=== PATIENT | male | born 1970 | race Hispanic/Latino ===

== ENCOUNTER 2017-04-19 00:58 | Inpatient (IN) | payer MEDICAID ==
[2017-04-19 00:59] VITALS: BMI 20.9
[2017-04-19] MEDS ORDERED: Lactated Ringer's 1,000 ML IV STA ×2 (01:41→03:10)
[2017-04-19 01:53] LABS: BASO # 0.1 K/uL (0.0-0.2); BASO % 0.7 % (0.0-2.0); EOS # 0.3 K/uL (0.0-0.7); EOS % 2.5 % (0.0-4.0); HEMATOCRIT 41.8 % (35.0-51.0); LYMPH # 5.7 K/uL (1.0-4.3); LYMPH % 48.1 % (20.0-40.0); MEAN CORPUSCULAR HEMOGLOBIN 28.9 pg (27.0-31.0); MEAN CORPUSCULAR HGB CONC 32.9 g/dL (33.0-37.0); MEAN PLATELET VOLUME 9.8 fl (7.2-11.7); MONO % 8.6 % (0.0-10.0); NEUT # 4.7 K/uL (1.8-7.0); NEUT % 40.1 % (50.0-75.0); NRBC % 0.1 % (0.0-0.0); RED CELL DISTRIBUTION WIDTH 13.9 % (11.5-14.5); WHITE BLOOD COUNT 11.8 K/uL (4.8-10.8)
[2017-04-19 02:00] LABS: POTASSIUM 4.4 MMOL/L (3.6-5.0)
[2017-04-19 02:02] LABS: ALB/GLOB RATIO 1.4 (1.0-2.1); AMYLASE 112 U/L (30-110); AST/SGOT 32 U/L (17-59); BILIRUBIN,TOTAL 0.4 mg/dl (0.2-1.3); BLOOD UREA NITROGEN 13 mg/dl (9-20); CARBON DIOXIDE 28 mmol/L (22-30); GFR AFRICAN-AMERICAN > 60; TOTAL PROTEIN 7.4 G/DL (6.3-8.2)
[2017-04-19 02:03] LABS: ALKALINE PHOSPHATASE 73 U/L (38-126); ALT/SGPT 35 U/L (21-72); GLUCOSE,RANDOM 106 mg/dL (75-110); LIPASE 667 U/L (23-300)
--- NOTE | 2017-04-19 02:10 | ED PDOC ---
HPI: Abdomen Time Seen by Provider: 04/19/17 01:10 Chief Complaint (Nursing): Abdominal Pain Chief Complaint (Provider): upper abd pain History Per: Patient Additional Complaint(s): pt w/ hx pancreatitis r/t alcohol abuse (sober one year) and STEMI 01/15 presents c/o epigastric pain radiating to the back worsening x 2 days w/ associated nausea. states pain feels like his previous bouts of pancreatitis. denies exertional sx. pain is worse with eating and laying back. no fever, cp , sob, vomitting, diarrhea, urinary c/o. Past Medical History Reviewed: Historical Data, Nursing Documentation, Vital Signs Vital Signs: Last Vital Signs Temp 97.6 F 04/19/17 01:11 Pulse 55 L 04/19/17 01:11 Resp 18 04/19/17 01:11 BP 145/72 04/19/17 01:11 Pulse Ox 100 04/19/17 02:11 - Medical History PMH: Pancreatitis (2013) Denies: Chronic Kidney Disease - Family History Family History: States: No Known Family Hx - Social History Current smoker - smoking cessation education provided: Yes Alcohol: Other (sober 1 year) Drugs: Denies - Home Medications Home Medications: Ambulatory Orders Medication Instructions Recorded Aspirin [Ecotrin] 81 mg PO DAILY #30 tablet. 01/27/17 Lisinopril 2.5 mg PO DAILY #30 tablet 01/27/17 Metoprolol Succinate XL [Toprol XL] 12.5 mg PO DAILY #30 tab 01/27/17 Rosuvastatin Calcium [Crestor] 20 mg PO HS #30 tab 01/27/17 Ticagrelor [Brilinta] 90 mg PO BID #60 tab 01/27/17 - Allergies Allergies/Adverse Reactions: Allergies Allergy/AdvReac Type Severity Reaction Status Date / Time No Known Allergies Allergy Verified 01/25/17 15:38 Review of Systems ROS Statement: Except As Marked, All Systems Reviewed And Found Negative Gastrointestinal: Positive for: Nausea, Abdominal Pain Physical Exam - Reviewed Nursing Documentation Reviewed: Yes Vital Signs Reviewed: Yes - Physical Exam Appears: Positive for: Non-toxic, Uncomfortable Skin: Positive for: Normal Color, Warm, DRY Neck: Positive for: Normal, Painless ROM Cardiovascular/Chest: Positive for: Regular Rate, Rhythm Respiratory: Positive for: CNT, Normal Breath Sounds Gastrointestinal/Abdominal: Positive for: Bowel Sounds, Soft, Tenderness ( tender epigastrum. neg roy, mcburney, rovsig). Negative for: Mass, Distended, Guarding, Rebound Neurologic/Psych: Positive for: Alert, Oriented - Laboratory Results Result Diagrams: 04/19/17 01:40 04/19/17 01:40 - ECG O2 Sat by Pulse Oximetry: 100 Medical Decision Making Medical Decision Making: pt w/ hx pancreatitis w/ s/sx recurrent episode. lipase 660s. VSS. will admit for observation. FP resident will eval. Disposition - Clinical Impression Clinical Impression: Acute pancreatitis - Patient ED Disposition Is Patient to be Admitted: Yes - Disposition Disposition Time: 02:23 Condition: STABLE - Pt Status Changed To: Hospital Disposition Of: Inpatient - Admit Certification Admit to Inpatient:: After my assessment, the patient will require hospitalization for at least two midnights. This is because of the severity of symptoms shown, intensity of services needed, and/or the medical risk in this patient being treated as an outpatient.
[2017-04-19 02:12] LABS: CHLORIDE 106 mmol/L (98-107); SODIUM 143 mmol/l (132-148)
[2017-04-19 02:33] LABS: RBC URINE < 1 /hpf (0-3); URINE BILIRUBIN NEGATIVE (NEGATIVE); URINE BLOOD NEGATIVE (NEGATIVE); URINE COLOR YELLOW (YELLOW); URINE GLUCOSE (UA) NEG (Normal); URINE KETONE NEGATIVE (NEGATIVE); URINE LEUKOCYTE ESTERASE NEG Leu/uL (Negative); URINE PROTEIN NEGATIVE (NEGATIVE); URINE UROBILINOGEN 0.2-1.0 mg/dL (0.2-1.0); WBC URINE < 1 /hpf (0-5)
--- NOTE | 2017-04-19 03:14 | CP.PCM.HP ---
<LeivaJohnson - Last Filed: 04/19/17 03:11> History of Present Illness - History of Present Illness History of Present Illness: 46 year old male with medical history of multiple bouts of alcoholic pancreatitis, CAD (with 2 stents placed in 12/2016) presented to ED today with complaints of epigastric pain associated with nausea x 2 days that radiated to the back. Patient states was in usual state of health prior to onset. Patient denies EtOH use in over a year. States pain feels like his previous bouts of pancreatitis. Pain is worse with eating and laying back. Denies fever, chills, cp, sob, vomitting, diarrhea, urinary complaints. Last BM today, soft non bloody or melena reported. PMD: [facility] PMHx: Pancreatitis, CAD (with 2 stents placed in 12/2016), EtOH abuse, tobacco abuse Meds: As per chart Allergies: NKDA Surgical hx: Cath with [address] at [facility] 12/2016 Social hx: Former EtOH Abuser. ED Course: Vitals stable. Afebrile Epigastric tenderness Morphine 4mg given 2L of LR given Labs notable for mild leukocytosis and Lipase 677 Present on Admission - Present on Admission Any Indicators Present on Admission: No Review of Systems - Review of Systems All systems: reviewed and no additional remarkable complaints except (mentioned in HPI) Past Patient History - Past Medical History & Family History Past Medical History?: Yes - Past Social History Alcohol: Other (sober 1 year) Drugs: Denies - CARDIAC Hx Heart Attack: Yes - PULMONARY Hx Respiratory Disorders: No - NEUROLOGICAL Hx Neurological Disorder: No - HEENT Hx HEENT Problems: No - RENAL Hx Chronic Kidney Disease: No - ENDOCRINE/METABOLIC Hx Endocrine Disorders: No - HEMATOLOGICAL/ONCOLOGICAL Hx Blood Disorders: No - INTEGUMENTARY Hx Dermatological Problems: No - MUSCULOSKELETAL/RHEUMATOLOGICAL Hx Musculoskeletal Disorders: No - GASTROINTESTINAL Hx Pancreatitis: Yes (2013) - GENITOURINARY/GYNECOLOGICAL Hx Genitourinary Disorders: No - PSYCHIATRIC Hx Psychophysiologic Disorder: No Hx Substance Use: No - SURGICAL HISTORY Hx Cardiac Catheterization: Yes - ANESTHESIA Hx Anesthesia: No Hx Anesthesia Reactions: No Meds Allergies/Adverse Reactions: Allergies Allergy/AdvReac Type Severity Reaction Status Date / Time No Known Allergies Allergy Verified 01/25/17 15:38 Physical Exam - Constitutional Appears: Well, Non-toxic, No Acute Distress - Head Exam Head Exam: ATRAUMATIC, NORMAL INSPECTION, NORMOCEPHALIC - Eye Exam Eye Exam: EOMI, Normal appearance - ENT Exam Additional comments: poor dentition - Neck Exam Neck exam: Positive for: Full Rom, Normal Inspection - Respiratory Exam Respiratory Exam: Clear to Auscultation Bilateral, NORMAL BREATHING PATTERN. absent: Decreased Breath Sounds, Rales, Rhonchi, Wheezes - Cardiovascular Exam Cardiovascular Exam: REGULAR RHYTHM, RRR, +S1, +S2 - GI/Abdominal Exam GI & Abdominal Exam: Normal Bowel Sounds, Soft. absent: Distended, Firm, Guarding, Organomegaly, Tenderness - Extremities Exam Extremities exam: Positive for: normal inspection. Negative for: calf tenderness, pedal edema - Back Exam Back exam: NORMAL INSPECTION - Neurological Exam Neurological exam: Alert, Oriented x3 - Psychiatric Exam Psychiatric exam: Normal Affect, Normal Mood - Skin Skin Exam: Dry, Intact, Normal Color, Warm Results - Vital Signs Recent Vital Signs: Last Vital Signs Temp 97.6 F 04/19/17 01:11 Pulse 55 L 04/19/17 01:11 Resp 18 04/19/17 01:11 BP 145/72 04/19/17 01:11 Pulse Ox 100 04/19/17 02:23 - Labs Result Diagrams: 04/19/17 01:40 04/19/17 01:40 Labs: Laboratory Results - last 24 hr 04/19/17 02:27 Urine Color Yellow Urine Clarity Clear Urine pH 6.0 Ur Specific [place] 1.010 Urine Protein Negative Urine Glucose (UA) Neg Urine Ketones Negative Urine Blood Negative Urine Nitrate Negative Urine Bilirubin Negative Urine Urobilinogen 0.2-1.0 Ur Leukocyte Esterase Neg Urine RBC (Auto) < 1 Urine Microscopic WBC < 1 Ur Squamous Epith Cells < 1 Assessment & Plan - Assessment and Plan (Free Text) Assessment: 46 years old male w/ PMHx of multiple bouts of pancreatitis usually 2ndary to EtOH abuse admitted due to acute pancreatitis w/ elevated lipase. Plan: (1) Acute pancreatitis - Denies EtOH use in 1 yr - Lipase 667 - LFTs/Bili wnl - LR @ 200cc/hr - Morphine for pain - Zofran for Nausea and vomiting - Pepcid q 12 - GI consult ordered - NPO diet (2) ETOH abuse - Stable, last EtOH approx 1 yr ago - No s/s or etoh withdrawal - WIll obtain alcohol level in serum (3) CAD, 2 stents placed 12/2016 - Continue Brilinta, Metoprolol, Rovustatin, and ASA as prescribed (4) DVT prophylaxis - Lovenox 40mg SC <Dee Dee Escamilla - Last Filed: 04/19/17 11:25> Results - Vital Signs Recent Vital Signs: Last Vital Signs Temp 97.5 F L 04/19/17 08:39 Pulse 59 L 04/19/17 11:02 Resp 20 04/19/17 08:39 BP 119/83 04/19/17 11:02 Pulse Ox 99 04/19/17 08:39 - Labs Result Diagrams: 04/19/17 01:40 04/19/17 01:40 Labs: Laboratory Results - last 24 hr 04/19/17 04/19/17 04/19/17 02:27 02:27 03:35 Urine Color Yellow Urine Clarity Clear Urine pH 6.0 Ur Specific [place] 1.010 Urine Protein Negative Urine Glucose (UA) Neg Urine Ketones Negative Urine Blood Negative Urine Nitrate Negative Urine Bilirubin Negative Urine Urobilinogen 0.2-1.0 Ur Leukocyte Esterase Neg Urine RBC (Auto) < 1 Urine Microscopic WBC < 1 Ur Squamous Epith Cells < 1 Urine Opiates Screen Negative Urine Methadone Screen Negative Ur Barbiturates Screen Negative Ur Phencyclidine Scrn Negative Ur Amphetamines Screen Negative U Benzodiazepines Scrn Negative U Oth Cocaine Metabols Negative U Cannabinoids Screen Negative Alcohol, Quantitative < 10 Assessment & Plan - Assessment and Plan (Free Text) Assessment: ATTENDING NOTE/ATTESTATION PATIENT ADMITTED THROUGH THE ED. CHART REVIEWED. CASE DISCUSSED WITH RESIDENT. AGREE WITH PLAN
[2017-04-19] MEDS ORDERED: Lactated Ringer's 1,000 ML IV SCH ×2 (03:15→17:21)
[2017-04-19] MEDS ORDERED: Sodium Chloride 0.9% 1,000 ML IV SCH (03:15)
--- NOTE | 2017-04-19 08:57 | RAD ---
HISTORY: Epigastric pain. COMPARISON: No prior. TECHNIQUE: Chest PA and lateral FINDINGS: LUNGS: [place] for hyperinflation PLEURA: No significant pleural effusion identified. No pneumothorax apparent. CARDIOVASCULAR: Normal. OSSEOUS STRUCTURES: No significant abnormalities. VISUALIZED UPPER ABDOMEN: Normal. OTHER FINDINGS: None. IMPRESSION: No active disease. No significant interval change compared to the prior examination(s).
[2017-04-19] MEDS ORDERED: LISINOPRIL 2.5 MG PO SCH (09:00)
[2017-04-19] MEDS: Enoxaparin 40 mg Syringe SC SCH (10:58)
[2017-04-19] MEDS: Metoprolol Succinate 25 mg XL Tab PO SCH (11:02)
--- NOTE | 2017-04-19 11:32 | CP.PCM.CON ---
<Micah Bone - Last Filed: 04/19/17 16:42> History of Present Illness - History of Present Illness History of Present Illness: PGY4 GI Fellow Consult Note Patient is a 46yo male with PMHx significant for EtOH abuse, prior episodes of alcohol induced pancreatitis, CAD s/p PCI with 2 stents previously placed who presented to the ED with complaint of abdominal pain and nausea. Wednesday afternoon patient developed epigastric pain which he attributed to typical gas pain. Discomfort continued in to Wednesday morning and by Wednesday evening his discomfort became severe and was radiating to his mid-lower back. Patient used tylenol to alleviate symptoms but did not find any relief, thus he came to the ED for further evaluation. He denies any recent EtOH use and has been sober 14 months per his account. New medications started in the past 2 months include Brilinta and ASA following PCI with 2 stents placed. Denies any chronic diarrhea , weight loss. He does not have a history of gallstones or hypertriglyceridemia. Currently, pain is improved and he is no longer nauseated. Eager to eat. PMHx: See HPI PSHx: PCI with 2 stents placed FHx: Mother - DM, HTN; Father - DM, HTN Social: 5 cigarettes/day; sober 14 months; denies illicit drug use Endo: Denies any prior endoscopic evaluation Review of Systems - Constitutional Constitutional: absent: Anorexia, Chills, Fever - EENT Eyes: absent: Change in Vision Nose/Mouth/Throat: absent: Sore Throat - Cardiovascular Cardiovascular: absent: Chest Pain, Dyspnea, Edema - Respiratory Respiratory: absent: Cough, Dyspnea, Excessive Mucous Production - Gastrointestinal Gastrointestinal: Abdominal Pain, Bloating, Heartburn, Nausea. absent: Constipation, Cramping, Diarrhea, Dyspepsia, Dysphagia, Hematemesis, Hematochezia, Loose Stools, Melena, Vomiting - Genitourinary Genitourinary: absent: Dysuria, Urinary Frequency, Urinary Urgency - Musculoskeletal Musculoskeletal: absent: Back Pain, Neck Pain - Integumentary Integumentary: absent: New Lesions, Rash - Neurological Neurological: absent: Dizziness, Numbness, Focal Weakness - Psychiatric Psychiatric: absent: Anxiety, Depression - Endocrine Endocrine: absent: Polydipsia, Polyphagia, Polyuria - Hematologic/Lymphatic Hematologic: absent: Easy Bleeding, Easy Bruising, Lymphadenopathy Past Patient History - Past Medical History & Family History Past Medical History?: Yes - Past Social History Smoking Status: Light Smoker < 10 Cigarettes Daily - CARDIAC Hx Cardiac Disorders: Yes (STEMI 01/15, high cholesterol) Hx Hypercholesterolemia: Yes - PULMONARY Hx Respiratory Disorders: No - NEUROLOGICAL Hx Neurological Disorder: No - HEENT Hx HEENT Problems: No - RENAL Hx Chronic Kidney Disease: No - ENDOCRINE/METABOLIC Hx Endocrine Disorders: No - HEMATOLOGICAL/ONCOLOGICAL Hx Blood Disorders: No Hx AIDS: No Hx Human Immunodeficiency Virus (HIV): No - INTEGUMENTARY Hx Dermatological Problems: No - MUSCULOSKELETAL/RHEUMATOLOGICAL Hx Musculoskeletal Disorders: No Hx Falls: No - GASTROINTESTINAL Hx Gastrointestinal Disorders: Yes Hx Pancreatitis: Yes (2013) - GENITOURINARY/GYNECOLOGICAL Hx Genitourinary Disorders: No - PSYCHIATRIC Hx Psychophysiologic Disorder: No Hx Substance Use: No - SURGICAL HISTORY Hx Surgeries: Yes Hx Cardiac Catheterization: Yes (x 2 STEMI Dec 2016) - ANESTHESIA Hx Anesthesia: Yes Hx Anesthesia Reactions: No Meds Allergies/Adverse Reactions: Allergies Allergy/AdvReac Type Severity Reaction Status Date / Time No Known Allergies Allergy Verified 01/25/17 15:38 - Medications Medications: Current Medications Aspirin (Ecotrin) 81 mg PO DAILY [facility] Last Admin: 04/19/17 10:57 Dose: 81 mg Atorvastatin Calcium (Lipitor) 40 mg PO HS [facility] Enoxaparin Sodium (Lovenox) 40 mg SC DAILY [facility] PRN Reason: Protocol Last Admin: 04/19/17 10:58 Dose: 40 mg Famotidine (Pepcid) 20 mg IVP Q12 [facility] Last Admin: 04/19/17 10:58 Dose: 20 mg Lactated Ringer's (Lactated Ringer's) 1,000 mls @ 200 mls/hr IV .Q5H [facility] Last Admin: 04/19/17 04:56 Dose: 200 mls/hr Lisinopril (Zestril) 2.5 mg PO DAILY [facility] Last Admin: 04/19/17 11:02 Dose: 2.5 mg Metoprolol Succinate (Toprol Xl) 25 mg PO DAILY [facility] Last Admin: 04/19/17 11:02 Dose: 25 mg Morphine Sulfate (Morphine) 2 mg IVP Q4 PRN PRN Reason: Pain, moderate (4-7) Last Admin: 04/19/17 11:19 Dose: 2 mg Morphine Sulfate (Morphine) 4 mg IVP Q6 PRN PRN Reason: Pain, severe (8-10) Ondansetron HCl (Zofran Inj) 4 mg IVP Q6 PRN PRN Reason: Nausea/Vomiting Ticagrelor (Brilinta) 90 mg PO BID [facility] Last Admin: 04/19/17 10:57 Dose: 90 mg Physical Exam - Constitutional Appears: Non-toxic, No Acute Distress - Eye Exam Eye Exam: EOMI, PERRL - ENT Exam ENT Exam: Mucous Membranes Moist - Respiratory Exam Respiratory Exam: Clear to Auscultation Bilateral. absent: Rales, Rhonchi, Wheezes - Cardiovascular Exam Cardiovascular Exam: RRR, +S1, +S2 - GI/Abdominal Exam GI & Abdominal Exam: Normal Bowel Sounds, Soft. absent: Distended, Firm, Guarding, Organomegaly, Rigid, Tenderness - Extremities Exam Extremities exam: Positive for: normal inspection. Negative for: pedal edema - Back Exam Back exam: NORMAL INSPECTION - Neurological Exam Neurological exam: Alert, Oriented x3 - Psychiatric Exam Psychiatric exam: Normal Affect, Normal Mood - Skin Skin Exam: Dry, Warm Results - Vital Signs Recent Vital Signs: Last Vital Signs Temp 97.5 F L 04/19/17 08:39 Pulse 59 L 04/19/17 11:02 Resp 20 04/19/17 08:39 BP 119/83 04/19/17 11:02 Pulse Ox 99 04/19/17 08:39 - Labs Result Diagrams: 04/19/17 01:40 04/19/17 01:40 Labs: Laboratory Results - last 24 hr 04/19/17 04/19/17 04/19/17 02:27 02:27 03:35 Urine Color Yellow Urine Clarity Clear Urine pH 6.0 Ur Specific [place] 1.010 Urine Protein Negative Urine Glucose (UA) Neg Urine Ketones Negative Urine Blood Negative Urine Nitrate Negative Urine Bilirubin Negative Urine Urobilinogen 0.2-1.0 Ur Leukocyte Esterase Neg Urine RBC (Auto) < 1 Urine Microscopic WBC < 1 Ur Squamous Epith Cells < 1 Urine Opiates Screen Negative Urine Methadone Screen Negative Ur Barbiturates Screen Negative Ur Phencyclidine Scrn Negative Ur Amphetamines Screen Negative U Benzodiazepines Scrn Negative U Oth Cocaine Metabols Negative U Cannabinoids Screen Negative Alcohol, Quantitative < 10 Assessment & Plan - Assessment and Plan (Free Text) Assessment: Patient is a 46yo male with PMHx significant for EtOH abuse, prior episodes of alcohol induced pancreatitis, CAD s/p PCI with 2 stents previously placed who presented to the ED with complaint of abdominal pain and nausea. -Suspect mild acute pancreatitis; unclear etiology at this time -H/O small pancreatic tail lesion and lymphadenopathy Plan: -Recommend MRCP to rule out pancreas divisum, re-evaluate tail lesion -Encourage tobacco cessation -Check IgG4, lipid panel -No medications to account for medication induced pancreatitis -May benefit from outpatient EUS -Advance to heart healthy diet - Date & Time Date: 04/19/17 Time: 12:50 <Axel Lei MD - Last Filed: 04/19/17 20:02> Meds - Medications Medications: Current Medications Aspirin (Ecotrin) 81 mg PO DAILY [facility] Last Admin: 04/19/17 10:57 Dose: 81 mg Atorvastatin Calcium (Lipitor) 40 mg PO HS [facility] Enoxaparin Sodium (Lovenox) 40 mg SC DAILY [facility] PRN Reason: Protocol Last Admin: 04/19/17 10:58 Dose: 40 mg Famotidine (Pepcid) 20 mg IVP Q12 [facility] Last Admin: 04/19/17 10:58 Dose: 20 mg Lactated Ringer's (Lactated Ringer's) 1,000 mls @ 100 mls/hr IV .Q10H [facility] Lisinopril (Zestril) 2.5 mg PO DAILY [facility] Last Admin: 04/19/17 11:02 Dose: 2.5 mg Metoprolol Succinate (Toprol Xl) 25 mg PO DAILY [facility] Last Admin: 04/19/17 11:02 Dose: 25 mg Morphine Sulfate (Morphine) 2 mg IVP Q4 PRN PRN Reason: Pain, moderate (4-7) Last Admin: 04/19/17 17:31 Dose: 2 mg Morphine Sulfate (Morphine) 4 mg IVP Q6 PRN PRN Reason: Pain, severe (8-10) Ondansetron HCl (Zofran Inj) 4 mg IVP Q6 PRN PRN Reason: Nausea/Vomiting Ticagrelor (Brilinta) 90 mg PO BID [facility] Last Admin: 04/19/17 16:55 Dose: 90 mg Results - Vital Signs Recent Vital Signs: Last Vital Signs Temp 98.7 F 04/19/17 16:14 Pulse 79 04/19/17 16:14 Resp 18 04/19/17 16:14 BP 128/80 04/19/17 16:14 Pulse Ox 98 04/19/17 16:14 - Labs Result Diagrams: 04/19/17 01:40 04/19/17 01:40 Labs: Laboratory Results - last 24 hr 04/19/17 04/19/17 04/19/17 02:27 02:27 03:35 Triglycerides Cholesterol LDL Cholesterol Direct HDL Cholesterol Urine Color Yellow Urine Clarity Clear Urine pH 6.0 Ur Specific [place] 1.010 Urine Protein Negative Urine Glucose (UA) Neg Urine Ketones Negative Urine Blood Negative Urine Nitrate Negative Urine Bilirubin Negative Urine Urobilinogen 0.2-1.0 Ur Leukocyte Esterase Neg Urine RBC (Auto) < 1 Urine Microscopic WBC < 1 Ur Squamous Epith Cells < 1 Urine Opiates Screen Negative Urine Methadone Screen Negative Ur Barbiturates Screen Negative Ur Phencyclidine Scrn Negative Ur Amphetamines Screen Negative U Benzodiazepines Scrn Negative U Oth Cocaine Metabols Negative U Cannabinoids Screen Negative Alcohol, Quantitative < 10 04/19/17 15:00 Triglycerides 38 Cholesterol 80 LDL Cholesterol Direct 31 HDL Cholesterol 42 Urine Color Urine Clarity Urine pH Ur Specific [place] Urine Protein Urine Glucose (UA) Urine Ketones Urine Blood Urine Nitrate Urine Bilirubin Urine Urobilinogen Ur Leukocyte Esterase Urine RBC (Auto) Urine Microscopic WBC Ur Squamous Epith Cells Urine Opiates Screen Urine Methadone Screen Ur Barbiturates Screen Ur Phencyclidine Scrn Ur Amphetamines Screen U Benzodiazepines Scrn U Oth Cocaine Metabols U Cannabinoids Screen Alcohol, Quantitative Attending/Attestation - Attestation I have personally seen and examined this patient.: Yes I have fully participated in the care of the patient.: Yes I have reviewed all pertinent clinical information: Yes Notes (Text): 04/19/17 19:48 Patient seen with GI fellow. 46 yr old male with PMHx significant for EtOH abuse , prior episodes of alcohol induced pancreatitis, CAD s/p PCI with 2 stents previously placed who presented to the ED with complaint of abdominal pain and nausea. Suspect mild acute pancreatitis; unclear etiology at this time. H/O small pancreatic tail lesion and lymphadenopathy Recommend MRCP to rule out pancreas divisum, re-evaluate tail lesion. Encourage tobacco cessation. Advance diet. Can follow as outpatient if diet tolerated
--- NOTE | 2017-04-19 15:04 | MRI ---
MRCP Indication: Prior pancreatic lesion, tail Technique: Multiplanar, multisequence MR images of the abdomen were obtained, including heavily T2 weighted MRCP images of the biliary system. Rotating maximum intensity projection images of the biliary system were generated. A total of 644 images were submitted for review. Comparison: CT abdomen and pelvis with contrast performed 03/01/16 Findings: The liver appears grossly unremarkable on this noncontrast examination. There is no intrahepatic biliary ductal dilatation. The distal most CBD at the confluence of the pancreatic duct is not adequately visualized. Visualized portions of the common bile duct appears within normal limits in caliber. The proximal pancreatic duct appears unremarkable. Mildly tortuous prominent distal pancreatic duct measuring up to approximately 4 mm. No filling defects are seen in the common bile duct or pancreatic duct. T1 hypo intense 1.6 x 1.6 cm focus within the pancreatic tail (series 801, image 42); the pancreatic duct is not visualized this region and appears mildly tortuous and dilated distally. The noncontrast adrenal glands, kidneys, spleen, and pancreas appear unremarkable. No ascites. No acute osseous abnormality is detected. Impression: Distal most CBD is not adequately visualized. No filling defects seen within the common bile duct. Visualized portions of the common bile duct appear within normal limits of caliber. No evidence to suggest pancreatic divisum. 1.6 x 1.6 cm T1 hypo intense focus involving the pancreatic tail. Pancreatic duct appears mildly tortuous and dilated distal to this lesion. Recommend dedicated cross-sectional imaging for further characterization.
[2017-04-19 15:25] LABS: CHOLESTEROL 80 mg/dL (0-199)
--- NOTE | 2017-04-19 19:11 | CARD ---
APPROVED REPORT EKG Measurement Heart [id number] CT [id number] <Conclusion> Sinus bradycardia RSR' or QR pattern in V1 suggests right ventricular conduction delay Borderline ECG
[2017-04-20 07:46] LABS: HEMATOCRIT 40.5 % (35.0-51.0); MEAN CELL VOLUME 87.5 fl (80.0-94.0); MEAN CORPUSCULAR HEMOGLOBIN 28.7 pg (27.0-31.0); MEAN CORPUSCULAR HGB CONC 32.8 g/dL (33.0-37.0); RED CELL DISTRIBUTION WIDTH 14.3 % (11.5-14.5); WHITE BLOOD COUNT 13.9 K/uL (4.8-10.8)
[2017-04-20 07:50] VITALS: BP 114/70; PULSE 64; RESP 20; TEMP 98.6; O2SAT 97
[2017-04-20] MEDS ORDERED: Iohexol 300 100 ML IJ ONE (08:03)
[2017-04-20] MEDS ORDERED: Sodium Chloride 0.9% 50 ML IV ONE (08:03)
[2017-04-20 08:10] LABS: ALB/GLOB RATIO 1.4 (1.0-2.1); ALKALINE PHOSPHATASE 74 U/L (38-126); ALT/SGPT 28 U/L (21-72); AST/SGOT 25 U/L (17-59); BILIRUBIN,TOTAL 0.6 mg/dl (0.2-1.3); BLOOD UREA NITROGEN 12 mg/dl (9-20); CALCIUM 8.6 mg/dL (8.4-10.2); CARBON DIOXIDE 26 mmol/L (22-30); CHLORIDE 104 mmol/L (98-107); GFR AFRICAN-AMERICAN > 60; GLUCOSE,RANDOM 91 mg/dL (75-110); SODIUM 141 mmol/l (132-148); TOTAL PROTEIN 6.6 G/DL (6.3-8.2)
--- NOTE | 2017-04-20 08:26 | CP.PCM.DIS ---
Provider - Provider Date of Admission: 04/19/17 02:18 Attending physician: Cecile Raymundo MD Consults: GI(Dr Lei) Time Spent in preparation of Discharge (in minutes): 30 Diagnosis - Discharge Diagnosis (1) Hx of myocardial infarction Status: Chronic Comment: Stable. Troponin x1 neg. On Brillinta (2) Abdominal pain Status: Acute Comment: Possible pancreatitis(Elevated lipase). MRCP no changes. F/U outpatient Hospital Course - Lab Results Lab Results: Most Recent Lab Values WBC 13.9 K/uL (4.8-10.8) H 04/20/17 05:50 RBC 4.63 Mil/uL (4.40-5.90) 04/20/17 05:50 Hgb 13.3 g/dL (12.0-18.0) 04/20/17 05:50 Hct 40.5 % (35.0-51.0) 04/20/17 05:50 MCV 87.5 fl (80.0-94.0) 04/20/17 05:50 MCH 28.7 pg (27.0-31.0) 04/20/17 05:50 MCHC 32.8 g/dL (33.0-37.0) L 04/20/17 05:50 RDW 14.3 % (11.5-14.5) 04/20/17 05:50 Plt Count 146 K/uL (130-400) 04/20/17 05:50 MPV 9.8 fl (7.2-11.7) 04/19/17 01:40 Neut % (Auto) 40.1 % (50.0-75.0) L 04/19/17 01:40 Lymph % (Auto) 48.1 % (20.0-40.0) H 04/19/17 01:40 [place] % (Auto) 8.6 % (0.0-10.0) 04/19/17 01:40 Eos % (Auto) 2.5 % (0.0-4.0) 04/19/17 01:40 Baso % (Auto) 0.7 % (0.0-2.0) 04/19/17 01:40 Neut # 4.7 K/uL (1.8-7.0) 04/19/17 01:40 Lymph # 5.7 K/uL (1.0-4.3) H 04/19/17 01:40 [place] # 1.0 K/uL (0.0-0.8) H 04/19/17 01:40 Eos # 0.3 K/uL (0.0-0.7) 04/19/17 01:40 Baso # 0.1 K/uL (0.0-0.2) 04/19/17 01:40 Sodium 141 mmol/l (132-148) 04/20/17 05:50 Potassium 4.0 MMOL/L (3.6-5.0) 04/20/17 05:50 Chloride 104 mmol/L (98-107) 04/20/17 05:50 Carbon Dioxide 26 mmol/L (22-30) 04/20/17 05:50 Anion Gap 15 (10-20) 04/20/17 05:50 BUN 12 mg/dl (9-20) 04/20/17 05:50 Creatinine 0.7 mg/dL (0.8-1.5) L 04/20/17 05:50 Est GFR ( Amer) > 60 04/20/17 05:50 Est GFR (Non-Af Amer) > 60 04/20/17 05:50 Random Glucose 91 mg/dL (75-110) 04/20/17 05:50 Calcium 8.6 mg/dL (8.4-10.2) 04/20/17 05:50 Total Bilirubin 0.6 mg/dl (0.2-1.3) 04/20/17 05:50 AST 25 U/L (17-59) 04/20/17 05:50 ALT 28 U/L (21-72) 04/20/17 05:50 Alkaline Phosphatase 74 U/L (38-126) 04/20/17 05:50 Lactate Dehydrogenase 365 U/L (313-618) 04/19/17 02:06 Troponin I < 0.0120 ng/mL (0.00-0.120) 04/19/17 01:40 Total Protein 6.6 G/DL (6.3-8.2) 04/20/17 05:50 Albumin 3.9 g/dL (3.5-5.0) 04/20/17 05:50 Globulin 2.7 gm/dL (2.2-3.9) 04/20/17 05:50 Albumin/Globulin Ratio 1.4 (1.0-2.1) 04/20/17 05:50 Triglycerides 38 mg/DL (0-149) 04/19/17 15:00 Cholesterol 80 mg/dL (0-199) 04/19/17 15:00 LDL Cholesterol Direct 31 mg/dL (0-129) 04/19/17 15:00 HDL Cholesterol 42 MG/DL (30-70) 04/19/17 15:00 Amylase 112 U/L (30-110) H 04/19/17 01:40 Lipase 667 U/L (23-300) H 04/19/17 01:40 Urine Color Yellow (YELLOW) 04/19/17 02:27 Urine Clarity Clear (Clear) 04/19/17 02:27 Urine pH 6.0 (5.0-8.0) 04/19/17 02:27 Ur Specific [employer] 1.010 (1.003-1.030) 04/19/17 02:27 Urine Protein Negative mg/dL (NEGATIVE) 04/19/17 02:27 Urine Glucose (UA) Neg mg/dL (Normal) 04/19/17 02:27 Urine Ketones Negative mg/dL (NEGATIVE) 04/19/17 02:27 Urine Blood Negative (NEGATIVE) 04/19/17 02:27 Urine Nitrate Negative (NEGATIVE) 04/19/17 02:27 Urine Bilirubin Negative (NEGATIVE) 04/19/17 02:27 Urine Urobilinogen 0.2-1.0 mg/dL (0.2-1.0) 04/19/17 02:27 Ur Leukocyte Esterase Neg Long/uL (Negative) 04/19/17 02:27 Urine RBC (Auto) < 1 /hpf (0-3) 04/19/17 02:27 Urine Microscopic WBC < 1 /hpf (0-5) 04/19/17 02:27 Ur Squamous Epith Cells < 1 /hpf (0-5) 04/19/17 02:27 Urine Opiates Screen Negative (NEGATIVE) 04/19/17 02:27 Urine Methadone Screen Negative (NEGATIVE) 04/19/17 02:27 Ur Barbiturates Screen Negative (NEGATIVE) 04/19/17 02:27 Ur Phencyclidine Scrn Negative (NEGATIVE) 04/19/17 02:27 Ur Amphetamines Screen Negative (NEGATIVE) 04/19/17 02:27 U Benzodiazepines Scrn Negative (NEGATIVE) 04/19/17 02:27 U Oth Cocaine Metabols Negative (NEGATIVE) 04/19/17 02:27 U Cannabinoids Screen Negative (NEGATIVE) 04/19/17 02:27 Alcohol, Quantitative < 10 mg/dl (0-10) 04/19/17 03:35 - Hospital Course Hospital Course: 46 y/o admitted for acute pancreatitis seen at bedside in not distress. Patient is tolerating PO diet but admits abd pain in epigastric, LUQ area after meals. Nausea resolved. Denies vomiting, CP, SOB, palpitations or changes in urination or stools. Afebrile. He underwent MRCP yesterday that showed a lesion in the tail of the pancreas with no apparent interval change from previous CT in 2016. He was treated with high rate IV fluids and NPO until last night that diet was advance. Today patient is cleared for discharge by GI with f/u as outpatient. Home meds Aspirin [Ecotrin] 81 mg PO DAILY Lisinopril 2.5 mg PO DAILY Rosuvastatin Calcium [Crestor] 20 mg PO HS Ticagrelor [Brilinta] 90 mg PO BID Metoprolol Succinate XL [Toprol XL] 12.5 mg PO DAILY Discharge Exam - Head Exam Head Exam: ATRAUMATIC, NORMAL INSPECTION, NORMOCEPHALIC - Eye Exam Eye Exam: PERRL - ENT Exam ENT Exam: Mucous Membranes Moist - Respiratory Exam Respiratory Exam: Clear to PA & Lateral, NORMAL BREATHING PATTERN - Cardiovascular Exam Cardiovascular Exam: REGULAR RHYTHM, +S1, +S2. absent: Gallop - GI/Abdominal Exam GI & Abdominal Exam: Normal Bowel Sounds, Unremarkable. absent: Rebound, Tenderness - Extremities Exam Extremities exam: normal capillary refill, pedal pulses present - Neurological Exam Neurological exam: Alert, Oriented x3 - Psychiatric Exam Psychiatric exam: Normal Affect, Normal Mood - Skin Skin Exam: Normal Color, Warm Discharge Plan - Follow Up Plan Condition: GOOD Disposition: HOME/ ROUTINE Instructions: Pancreatitis (DC) Additional Instructions: F/U with PMD and GI as outpatient after discharge.
[2017-04-20] MEDS: Enoxaparin 40 mg Syringe SC SCH (08:54)
[2017-04-20] MEDS: Metoprolol Succinate 25 mg XL Tab PO SCH (09:00)
--- NOTE | 2017-04-20 12:49 | CT ---
PROCEDURE: CT Abdomen and Pelvis with contrast HISTORY: better characterize pancreatic lesion COMPARISON: MRCP performed 04/19/17, CT abdomen and pelvis with IV contrast performed 03/01/16 TECHNIQUE: Contrast dose: 95 mL Omnipaque 300 Radiation dose: Total exam DLP = 1090.75 mGy-cm. This CT exam was performed using one or more of the following dose reduction techniques: Automated exposure control, adjustment of the mA and/or kV according to patient size, and/or use of iterative reconstruction technique. FINDINGS: LOWER THORAX: Mild left basilar atelectasis. Trace left pleural effusion. No visible pneumothorax. Small hiatal hernia/distal esophageal wall thickening. LIVER: Unremarkable. GALLBLADDER AND BILE DUCTS: Unremarkable. PANCREAS: Ectatic prominent pancreatic duct at the level of the tail measuring up to 4-5 mm in diameter. Mild peripancreatic inflammatory changes. Nonspecific 6 x 8 mm heterogeneous hypodensity at the pancreatic tail (series 10, image 45) of unclear significance. No peripancreatic fluid collections identified. SPLEEN: Unremarkable. ADRENALS: Unremarkable. KIDNEYS AND URETERS: The kidneys enhance symmetrically. No hydronephrosis or obstructing calculus identified. VASCULATURE: No aortic aneurysm. BOWEL: Stomach is nondistended. Lack of oral contrast limits evaluation for bowel pathology. Bowel loops appear within normal limits of caliber without evidence of obstruction. Mild to moderate constipation. APPENDIX: The presumed appendix appears within normal limits of caliber. No secondary signs of acute appendicitis. PERITONEUM: Small pelvic free fluid. No definite free air. LYMPH NODES: Sub cm prominent peripancreatic/mesenteric lymph nodes. Sub cm retroperitoneal lymph nodes. BLADDER: Unremarkable. REPRODUCTIVE: Unremarkable. BONES: Degenerative changes. OTHER FINDINGS: None. IMPRESSION: Ectatic prominent pancreatic duct at the level of the tail measuring up to 4-5 mm in diameter. Mild peripancreatic inflammatory changes. Sub cm prominent peripancreatic/ mesenteric lymph nodes. No peripancreatic fluid collections identified. Correlate clinically for acute pancreatitis including amylase and lipase. Nonspecific too small to characterize 6 x 8 mm heterogeneous mostly hypodense focus, pancreatic tail. Correlate clinically and continued close interval follow-up recommended. Mild to moderate constipation. Small pelvic free fluid. Additional findings as above.
== END 2017-04-20 13:30 | disposition home or self-care (01) | DRG 204 ==
LOC: H.ER 00:58 → H.ERHOLD 02:18 → H.MEDSURG1 04:00
PROVIDERS: ADMIT Family Medicine Geriatric Medicine; ATTEND Family Medicine Geriatric Medicine
DX: K85.90 Acute pancreatitis without necrosis or infection, unspecified (principal); F10.21 Alcohol dependence, in remission; I25.2 Old myocardial infarction; I25.10 Atherosclerotic heart disease of native coronary artery without angina pectoris; E78.00 Pure hypercholesterolemia, unspecified; Z95.5 Presence of coronary angioplasty implant and graft; F17.210 Nicotine dependence, cigarettes, uncomplicated; Z79.82 Long term (current) use of aspirin

== ENCOUNTER 2017-05-16 01:30 | Inpatient (IN) | payer MEDICAID ==
[2017-05-16 01:30] VITALS: BMI 20.9
[2017-05-16] MEDS ORDERED: Sodium Chloride 0.9% 1,000 ML IV STA ×2 (02:24→04:35)
[2017-05-16 02:39] LABS: BASO # 0.1 K/uL (0.0-0.2); BASO % 0.8 % (0.0-2.0); EOS # 0.2 K/uL (0.0-0.7); EOS % 1.9 % (0.0-4.0); HEMATOCRIT 39.8 % (35.0-51.0); LYMPH # 3.8 K/uL (1.0-4.3); LYMPH % 34.1 % (20.0-40.0); MEAN CELL VOLUME 87.8 fl (80.0-94.0); MEAN CORPUSCULAR HEMOGLOBIN 29.3 pg (27.0-31.0); MEAN CORPUSCULAR HGB CONC 33.3 g/dL (33.0-37.0); MEAN PLATELET VOLUME 9.7 fl (7.2-11.7); MONO # 0.8 K/uL (0.0-0.8); MONO % 6.8 % (0.0-10.0); NEUT # 6.4 K/uL (1.8-7.0); NEUT % 56.4 % (50.0-75.0); NRBC % 0.1 % (0.0-0.0); RED CELL DISTRIBUTION WIDTH 14.6 % (11.5-14.5); WHITE BLOOD COUNT 11.3 K/uL (4.8-10.8)
--- NOTE | 2017-05-16 02:49 | ED PDOC ---
"HPI: Abdomen Time Seen by Provider: 05/16/17 01:49 Chief Complaint (Nursing): Abdominal Pain Chief Complaint (Provider): Upper Abdominal Pain History Per: Patient History/Exam Limitations: no limitations Onset/Duration Of Symptoms: Hrs (12 hours) Outside of [place] travel?: No Current Symptoms Are (Timing): Still Present Location Of Pain/Discomfort: Epigastric, LUQ Associated Symptoms: Vomiting (x2), Other (Denies alcohol consumption). denies : Fever, Diarrhea, Chest Pain Additional Complaint(s): Sam Angulo, a 46 year old male, with a past medical history of pancreatitis presents to the ED with upper abdominal pain, x12hrs. The patient reports that the pain is constant and she feels it in her left upper quadrant and epigastric area. He reports that he has had 2 episodes of vomiting and denies associated diarrhea and fever. The patient states that his pain is synonymous with pain he has developed with pancreatitis he has had in the past. Denies alcohol consumption, chest pain. PMD: [facility] Past Medical History Reviewed: Historical Data, Nursing Documentation, Vital Signs Vital Signs: Last Vital Signs Temp 98.3 F 05/16/17 01:43 Pulse 62 05/16/17 01:43 Resp 14 05/16/17 01:43 BP 134/77 05/16/17 01:43 Pulse Ox 100 05/16/17 03:07 - Medical History PMH: CAD, Hypercholesterolemia, Pancreatitis (2013) Denies: HIV, Chronic Kidney Disease - Surgical History Surgical History: Coronary Stent (x2) - Family History Family History: States: Unknown Family Hx - Home Medications Home Medications: Ambulatory Orders Medication Instructions Recorded Aspirin [Ecotrin] 81 mg PO DAILY #30 tablet. 01/27/17 Lisinopril 2.5 mg PO DAILY #30 tablet 01/27/17 Rosuvastatin Calcium [Crestor] 20 mg PO HS #30 tab 01/27/17 Ticagrelor [Brilinta] 90 mg PO BID #60 tab 01/27/17 Metoprolol Succinate XL [Toprol XL] 25 mg PO DAILY 04/19/17 - Allergies Allergies/Adverse Reactions: Allergies Allergy/AdvReac Type Severity Reaction Status Date / Time No Known Allergies Allergy Verified 05/16/17 01:43 Review of Systems Constitutional: Positive for: Other (Denies alcohol consumption). Negative for : Fever Cardiovascular: Negative for: Chest Pain Gastrointestinal: Positive for: Abdominal Pain (upper abdominal pain). Negative for: Diarrhea Physical Exam - Reviewed Nursing Documentation Reviewed: Yes Vital Signs Reviewed: Yes - Physical Exam Appears: Positive for: Non-toxic, No Acute Distress (Comfortable.) Head Exam: Positive for: ATRAUMATIC, NORMOCEPHALIC Eye Exam: Positive for: Normal appearance, EOMI, PERRL Neck: Positive for: Normal, Painless ROM, Supple Cardiovascular/Chest: Positive for: Regular Rate, Rhythm, Chest Non Tender. Negative for: Tachycardia Respiratory: Positive for: Normal Breath Sounds. Negative for: Wheezing, Respiratory Distress Gastrointestinal/Abdominal: Positive for: Normal Exam, Bowel Sounds, Soft, Tenderness (Left upper quadrant and epigastric tenderness.) Back: Positive for: Normal Inspection Extremity: Positive for: Normal ROM. Negative for: Tenderness, Deformity, Swelling Neurologic/Psych: Positive for: Alert, Oriented, Gait - Laboratory Results Result Diagrams: 05/16/17 02:35 05/16/17 02:35 - ECG O2 Sat by Pulse Oximetry: 100 (RA) Pulse Ox Interpretation: Normal Medical Decision Making Medical Decision Makin Initial Impression: 46 year old female presenting with upper abdominal pain Differential Include: Acute Pancreatitis, Gastritis,Cholecystitis Initial Plan: * EKG * CMP * Lipase * Troponin * CBC * NS 1000ml IV 1000mls/hr * Zofran 4mg IV * Reevaluation EKG performed: * Sinus bradycardia normal * Normal QRS waves * No ST changes * Rate 56 * * * FINDINGS: Lower thorax: Small left-sided pleural effusion. Calcified pleural plaques. ABDOMEN: Liver: No acute findings. Gallbladder and bile ducts: The gallbladder is decompressed. No calcified stones. No significant intra- or extrahepatic biliary ductal dilation. Pancreas: Prominence of the pancreas, with loss of normal fatty lobulation. Peripancreatic fat stranding is also present, along with trace free fluid. Dilatation of the duct within the tail of the pancreas is noted, similar in appearance to previous examination.The pancreas enhances homogeneously, without areas suggesting necrosis. Spleen: No acute findings. Adrenals: No acute findings. Kidneys and ureters: No acute findings. No hydronephrosis or renal calculi. No discrete solid mass. PELVIS: Bladder: No acute findings. Reproductive: No acute findings. Appendix: The appendix is not definitively visualized. No pericecal inflammation is noted. SAM ANGULO | Final Radiology Report CONFIDENTIALITY STATEMENT This report is intended only for use by the referring physician, and only in accordance with law. If you received this in error, call [phone]. Page 2 of 2 ABDOMEN and PELVIS: Stomach and bowel: No obstruction. No mucosal thickening. Peritoneum: As above. Lymph nodes: Multiple enlarged lymph nodes within the retroperitoneum and the root of the mesentery, a nonspecific finding. Vasculature: Calcified atherosclerotic disease. Bones: No acute fracture. IMPRESSION: Findings consistent with acute pancreatitis, less severe then was identified on previous examination performed 04/20/2017. Prominence of the duct within the tail of the pancreas, similar in appearance to previous examination. Scribe Attestation Documented by Farida Etienne acting as a scribe for Cecille Burgos MD. Provider Attestation All medical record entries made by the Scribe were at my direction and personally dictated by me. I have reviewed the chart and agree that the record accurately reflects my personal performance of the history, physical exam, medical decision making, and the department course for this patient. I have also personally directed, reviewed, and agree with the discharge instructions and disposition. Disposition - Clinical Impression Clinical Impression: Acute pancreatitis - Patient ED Disposition Is Patient to be Admitted: Yes Discussed With : Johnson Leiva Doctor Will See Patient In The: ED Counseled Patient/Family Regarding: Studies Performed, Diagnosis - Disposition Disposition Time: 04:38 Condition: FAIR - Pt Status Changed To: Hospital Disposition Of: Inpatient - Admit Certification Admit to Inpatient:: After my assessment, the patient will require hospitalization for at least two midnights. This is because of the severity of symptoms shown, intensity of services needed, and/or the medical risk in this patient being treated as an outpatient. - POA Present On Arrival: None"
[2017-05-16 02:56] LABS: ALB/GLOB RATIO 1.4 (1.0-2.1); ALKALINE PHOSPHATASE 76 U/L (38-126); ALT/SGPT 34 U/L (21-72); AST/SGOT 25 U/L (17-59); BILIRUBIN,TOTAL 0.3 mg/dl (0.2-1.3); BLOOD UREA NITROGEN 12 mg/dl (9-20); CALCIUM 8.9 mg/dL (8.4-10.2); CARBON DIOXIDE 25 mmol/L (22-30); CHLORIDE 105 mmol/L (98-107); GFR AFRICAN-AMERICAN > 60; GLUCOSE,RANDOM 113 mg/dL (75-110); LIPASE 511 U/L (23-300); POTASSIUM 3.8 MMOL/L (3.6-5.0); SODIUM 143 mmol/l (132-148); TOTAL PROTEIN 7.6 G/DL (6.3-8.2)
[2017-05-16] MEDS ORDERED: Iohexol 300 100 ML IJ ONE (03:27)
[2017-05-16] MEDS ORDERED: Sodium Chloride 0.9% 50 ML IV ONE (03:28)
--- NOTE | 2017-05-16 04:19 | CT ---
EXAM: CT Abdomen and Pelvis With Intravenous Contrast CLINICAL HISTORY: 46 years old, male; Pain; Abdominal pain; Epigastric; Additional info: Epigastric pain TECHNIQUE: Axial computed tomography images of the abdomen and pelvis with intravenous contrast. This CT exam was performed using one or more of the following dose reduction techniques: automated exposure control, adjustment of the mA and/or kV according to patient size, and/or use of iterative reconstruction technique. Coronal and sagittal reformatted images were created and reviewed. CONTRAST: 95 mL of omnipaque 300 administered intravenously. COMPARISON: CT - PANCREATIC PROTOCOL 04/20/2017 8:32:05 AM FINDINGS: Lower thorax: Small left-sided pleural effusion. Calcified pleural plaques. ABDOMEN: Liver: No acute findings. Gallbladder and bile ducts: The gallbladder is decompressed. No calcified stones. No significant intra- or extrahepatic biliary ductal dilation. Pancreas: Prominence of the pancreas, with loss of normal fatty lobulation. Peripancreatic fat stranding is also present, along with trace free fluid. Dilatation of the duct within the tail of the pancreas is noted, similar in appearance to previous examination.The pancreas enhances homogeneously, without areas suggesting necrosis. Spleen: No acute findings. Adrenals: No acute findings. Kidneys and ureters: No acute findings. No hydronephrosis or renal calculi. No discrete solid mass. PELVIS: Bladder: No acute findings. Reproductive: No acute findings. Appendix: The appendix is not definitively visualized. No pericecal inflammation is noted. ABDOMEN and PELVIS: Stomach and bowel: No obstruction. No mucosal thickening. Peritoneum: As above. Lymph nodes: Multiple enlarged lymph nodes within the retroperitoneum and the root of the mesentery, a nonspecific finding. Vasculature: Calcified atherosclerotic disease. Bones: No acute fracture. IMPRESSION: Findings consistent with acute pancreatitis, less severe then was identified on previous examination performed 04/20/2017. Prominence of the duct within the tail of the pancreas, similar in appearance to previous examination.
--- NOTE | 2017-05-16 05:10 | CP.PCM.HP ---
History of Present Illness - History of Present Illness History of Present Illness: 46 year old male with medical history of multiple bouts of alcoholic pancreatitis, CAD (with 2 stents placed in 12/2016) presented to ED today with complaints of epigastric/LUQ pain associated with nausea and one episode of vomiting for last 12 hours. Patient states was in usual state of health prior to onset. Patient denies EtOH use in over a year. States pain feels like his previous bouts of pancreatitis. Patient was admitted recently for similar episode, MRCP/Pancreatic CT completed. Patient was also evaluated by GI. Patient was cleared for discharge though never followed up. Denies fever, chills , cp, sob, vomiting, diarrhea, urinary complaints. Last BM today, normal/hard non bloody or melena reported. PMD: [facility] PMHx: Pancreatitis, CAD (with 2 stents placed in 12/2016), EtOH abuse, tobacco abuse Meds: As per chart Allergies: NKDA Surgical hx: Cath with [address] at [facility] 12/2016 Social hx: Former EtOH Abuser. ED Course: Vitals stable. Afebrile Epigastric tenderness Morphine 4mg and Zofran 4mg given 2L of NS given Labs notable for mild leukocytosis and Lipase 511 CT Abdomen/Pelvis: IMPRESSION: Findings consistent with acute pancreatitis, less severe then was identified on previous examination performed 04/20/2017. Prominence of the duct within the tail of the pancreas, similar in appearance to previous examination. Present on Admission - Present on Admission Any Indicators Present on Admission: No Review of Systems - Review of Systems All systems: reviewed and no additional remarkable complaints except (mentioned in HPI) Past Patient History - Past Medical History & Family History Past Medical History?: Yes - Past Social History Smoking Status: Light Smoker < 10 Cigarettes Daily - CARDIAC Hx Hypercholesterolemia: Yes - PULMONARY Hx Respiratory Disorders: No - NEUROLOGICAL Hx Neurological Disorder: No - HEENT Hx HEENT Problems: No - RENAL Hx Chronic Kidney Disease: No - ENDOCRINE/METABOLIC Hx Endocrine Disorders: No - HEMATOLOGICAL/ONCOLOGICAL Hx Human Immunodeficiency Virus (HIV): No - INTEGUMENTARY Hx Dermatological Problems: No - MUSCULOSKELETAL/RHEUMATOLOGICAL Hx Musculoskeletal Disorders: No Hx Falls: No - GASTROINTESTINAL Hx Pancreatitis: Yes (2014) - GENITOURINARY/GYNECOLOGICAL Hx Genitourinary Disorders: No - PSYCHIATRIC Hx Psychophysiologic Disorder: No Hx Substance Use: No - SURGICAL HISTORY Hx Coronary Stent: Yes (x2) - ANESTHESIA Hx Anesthesia: Yes Hx Anesthesia Reactions: No Meds Allergies/Adverse Reactions: Allergies Allergy/AdvReac Type Severity Reaction Status Date / Time No Known Allergies Allergy Verified 05/16/17 01:43 Physical Exam - Constitutional Appears: Well, Non-toxic, No Acute Distress - Head Exam Head Exam: ATRAUMATIC, NORMAL INSPECTION, NORMOCEPHALIC - Eye Exam Eye Exam: EOMI, Normal appearance - ENT Exam Additional comments: poor dentition, missing teeth - Neck Exam Neck exam: Positive for: Normal Inspection - Respiratory Exam Respiratory Exam: Clear to Auscultation Bilateral, NORMAL BREATHING PATTERN - Cardiovascular Exam Cardiovascular Exam: REGULAR RHYTHM - GI/Abdominal Exam GI & Abdominal Exam: Normal Bowel Sounds, Soft, Tenderness (mild epigastrum). absent: Distended, Guarding, Rebound - Extremities Exam Extremities exam: Positive for: normal inspection - Neurological Exam Neurological exam: Alert, Normal Gait, Oriented x3 - Psychiatric Exam Psychiatric exam: Normal Affect, Normal Mood - Skin Skin Exam: Dry, Intact, Normal Color, Warm Results - Vital Signs Recent Vital Signs: Last Vital Signs Temp 99.0 F 05/16/17 04:55 Pulse 79 05/16/17 04:55 Resp 14 05/16/17 01:43 BP 139/89 05/16/17 04:55 Pulse Ox 100 05/16/17 04:55 - Labs Result Diagrams: 05/16/17 02:35 05/16/17 02:35 Assessment & Plan (1) Acute pancreatitis Status: Acute (2) Hx of myocardial infarction Status: Chronic (3) DVT prophylaxis Status: Acute - Assessment and Plan (Free Text) Assessment: 46 year old male w/ PMHx of multiple bouts of pancreatitis usually 2ndary to EtOH abuse admitted due to acute pancreatitis w/ elevated lipase and CT findings of acute pancreatitis Plan: (1) Acute pancreatitis - Reviewed previous charts/workup including MRCP, Pacreatic CT, Lipid Panel, IGG4 - Denies EtOH use in 1 yr, obtain etoh serum - Lipase 511 - LFTs/Bili wnl - LR @ 200cc/hr - Morphine for pain - Zofran for Nausea and vomiting - GI consult ordered - NPO diet - Consider Creon as supplementation for discharge (patient had well response in past to it) (2) h/o UT, 2 stents placed 12/2016 - Resume Brilinta, Metoprolol, Rovustatin, and ASA as prescribed when no longer NPO (3) DVT prophylaxis - Lovenox 40mg SC
[2017-05-16] MEDS: Enoxaparin 40 mg Syringe SC SCH (09:02)
[2017-05-16] MEDS: Lactated Ringer's 1,000 ML IV SCH ×4 (09:04→19:42)
--- NOTE | 2017-05-16 10:01 | CP.PCM.CON ---
History of Present Illness - History of Present Illness History of Present Illness: CC: Abdominal pain HPI: 46 year old male with h/o CAD s/p stents, recurrent pancreatitis, h/o etoh abuse who presents with recurrent abdominal pain. He reports epigastric/LUQ pain which started 1-2 days ago. He says the pain is severe, constant, radiating to the back and associated with nausea and vomiting. He denies etoh use in the past 13 months. He does admit to smoking. He has tried pancreatic enzymes at times with some improvement. No prior EUS. No chest pain sob, or fever. no weight loss. PMHx: Pancreatitis, CAD s/p stents, h/o EtOH abuse, tobacco abuse PSHx: s/p cath with stent x 2 Shx: Former etoh abuse, current smoker ROS a comprehensive review of systems was performed and was negative apart from HPI Past Patient History - Past Medical History & Family History Past Medical History?: Yes - Past Social History Smoking Status: Light Smoker < 10 Cigarettes Daily - CARDIAC Hx Hypercholesterolemia: Yes - PULMONARY Hx Respiratory Disorders: No - NEUROLOGICAL Hx Neurological Disorder: No - HEENT Hx HEENT Problems: No - RENAL Hx Chronic Kidney Disease: No - ENDOCRINE/METABOLIC Hx Endocrine Disorders: No - HEMATOLOGICAL/ONCOLOGICAL Hx Human Immunodeficiency Virus (HIV): No - INTEGUMENTARY Hx Dermatological Problems: No - MUSCULOSKELETAL/RHEUMATOLOGICAL Hx Musculoskeletal Disorders: No Hx Falls: No - GASTROINTESTINAL Hx Pancreatitis: Yes (2014) - GENITOURINARY/GYNECOLOGICAL Hx Genitourinary Disorders: No - PSYCHIATRIC Hx Psychophysiologic Disorder: No Hx Substance Use: No - SURGICAL HISTORY Hx Coronary Stent: Yes (x2) - ANESTHESIA Hx Anesthesia: Yes Hx Anesthesia Reactions: No Meds Allergies/Adverse Reactions: Allergies Allergy/AdvReac Type Severity Reaction Status Date / Time No Known Allergies Allergy Verified 05/16/17 01:43 - Medications Medications: Current Medications Aspirin (Ecotrin) 81 mg PO DAILY [facility] Last Admin: 05/16/17 09:04 Dose: 81 mg Atorvastatin Calcium (Lipitor) 40 mg PO HS [facility] Enoxaparin Sodium (Lovenox) 40 mg SC DAILY [facility] PRN Reason: Protocol Last Admin: 05/16/17 09:02 Dose: 40 mg Lactated Ringer's (Lactated Ringer's) 1,000 mls @ 200 mls/hr IV .Q5H [facility] Last Admin: 05/16/17 09:04 Dose: 200 mls/hr Ketorolac Tromethamine (Toradol) 30 mg IVP Q6 PRN PRN Reason: Pain, Mild (1-3) Lisinopril (Zestril) 2.5 mg PO DAILY [facility] Metoprolol Succinate (Toprol Xl) 25 mg PO DAILY [facility] Morphine Sulfate (Morphine) 2 mg IVP Q4 PRN PRN Reason: Pain, moderate (4-7) Morphine Sulfate (Morphine) 4 mg IVP Q6 PRN PRN Reason: Pain, severe (8-10) Ondansetron HCl (Zofran Inj) 4 mg IVP Q6 PRN PRN Reason: Nausea/Vomiting Ticagrelor (Brilinta) 90 mg PO BID [facility] Physical Exam - Constitutional Appears: Non-toxic, No Acute Distress, Chronically Ill - Head Exam Head Exam: ATRAUMATIC, NORMOCEPHALIC - Eye Exam Eye Exam: Normal appearance, PERRL. absent: Scleral icterus - ENT Exam ENT Exam: Mucous Membranes Moist, Normal Oropharynx - Neck Exam Neck exam: Negative for: Lymphadenopathy, Thyromegaly - Respiratory Exam Respiratory Exam: Clear to Auscultation Bilateral, NORMAL BREATHING PATTERN. absent: Wheezes, Respiratory Distress - Cardiovascular Exam Cardiovascular Exam: REGULAR RHYTHM, +S1, +S2 - GI/Abdominal Exam GI & Abdominal Exam: Soft. absent: Distended, Guarding, Tenderness - Extremities Exam Extremities exam: Positive for: normal capillary refill. Negative for: pedal edema - Neurological Exam Neurological exam: Alert, Oriented x3 - Psychiatric Exam Psychiatric exam: Normal Affect, Normal Mood - Skin Skin Exam: Dry, Normal Color, Warm Results - Vital Signs Recent Vital Signs: Last Vital Signs Temp 98.1 F 05/16/17 08:20 Pulse 55 L 05/16/17 08:20 Resp 20 05/16/17 08:20 BP 125/78 05/16/17 08:20 Pulse Ox 98 05/16/17 08:20 - Labs Result Diagrams: 05/16/17 02:35 05/16/17 02:35 Labs: Laboratory Results - last 24 hr 05/16/17 05:30 Alcohol, Quantitative < 10 Assessment & Plan - Assessment and Plan (Free Text) Assessment: 46 year old male with h/o etoh abuse, cad s/p stents x 2, and recurrent pancreatitis admitted with abdominal pain. 1. Acute pancreatitis 2. Pancreatic duct dilation Plan: -NPO -LR at 200 cc/hr -pain control as needed -anti-emetics as needed -etoh abstinence -smoking cessation advised -consider pancreatic enzyme supplementation when he starts eating -recommend outpatient EUS in 4-6 weeks - Date & Time Date: 05/16/17 Time: 10:01
[2017-05-16] MEDS: Metoprolol Succinate 25 mg XL Tab PO SCH (11:34)
--- NOTE | 2017-05-16 13:25 | CARD ---
APPROVED REPORT EKG Measurement Heart [id number] <Conclusion> Sinus bradycardia Possible Left atrial enlargement Incomplete RBBB Left ventricular hypertrophy with QRS widening Abnormal ECG
[2017-05-16] MEDS ORDERED: Pantoprazole 40 MG in Sodium Chloride 0.9% 100 ML IVPB SCH (14:00)
[2017-05-16 19:33] LABS: RBC URINE < 1 /hpf (0-3); URINE BILIRUBIN NEGATIVE (NEGATIVE); URINE BLOOD NEGATIVE (NEGATIVE); URINE COLOR STRAW (YELLOW); URINE GLUCOSE (UA) NEG (Normal); URINE KETONE NEGATIVE (NEGATIVE); URINE LEUKOCYTE ESTERASE NEG Leu/uL (Negative); URINE PROTEIN NEGATIVE (NEGATIVE); URINE UROBILINOGEN 0.2-1.0 mg/dL (0.2-1.0); WBC URINE < 1 /hpf (0-5)
[2017-05-17] MEDS: Lactated Ringer's 1,000 ML IV SCH ×3 (00:56→12:25)
[2017-05-17 06:15] LABS: BASO % 0.4 % (0.0-2.0); EOS # 0.2 K/uL (0.0-0.7); EOS % 1.4 % (0.0-4.0); HEMATOCRIT 37.6 % (35.0-51.0); LYMPH # 3.6 K/uL (1.0-4.3); LYMPH % 32.2 % (20.0-40.0); MEAN CELL VOLUME 88.2 fl (80.0-94.0); MEAN CORPUSCULAR HEMOGLOBIN 28.9 pg (27.0-31.0); MEAN CORPUSCULAR HGB CONC 32.8 g/dL (33.0-37.0); MONO # 1.1 K/uL (0.0-0.8); MONO % 9.6 % (0.0-10.0); NEUT # 6.4 K/uL (1.8-7.0); NEUT % 56.4 % (50.0-75.0); RED CELL DISTRIBUTION WIDTH 14.4 % (11.5-14.5); WHITE BLOOD COUNT 11.3 K/uL (4.8-10.8)
[2017-05-17 06:44] LABS: PARTIAL THROMBOPLASTIN TIME 32.3 Seconds (25.6-37.1)
[2017-05-17 06:51] LABS: ALB/GLOB RATIO 1.2 (1.0-2.1); ALKALINE PHOSPHATASE 72 U/L (38-126); ALT/SGPT 28 U/L (21-72); AST/SGOT 25 U/L (17-59); BILIRUBIN,TOTAL 0.6 mg/dl (0.2-1.3); BLOOD UREA NITROGEN 5 mg/dl (9-20); CALCIUM 8.5 mg/dL (8.4-10.2); CARBON DIOXIDE 28 mmol/L (22-30); CHLORIDE 106 mmol/L (98-107); GFR AFRICAN-AMERICAN > 60; GLUCOSE,RANDOM 91 mg/dL (75-110); LIPASE 306 U/L (23-300); POTASSIUM 3.8 MMOL/L (3.6-5.0); SODIUM 142 mmol/l (132-148); TOTAL PROTEIN 6.4 G/DL (6.3-8.2)
--- NOTE | 2017-05-17 07:40 | CP.PCM.PN ---
Subjective - Date & Time of Evaluation Date of Evaluation: 05/17/17 Time of Evaluation: 07:39 - Subjective Subjective: No acute events overnight. Patient tolerated liquid diet. Has hunger, has mild abdominal pain but is not tender. He is sleeping most of the day. No other complaints at this time. Advance diet to soft, low fat, low fiber. Will discuss case with GI. Objective - Vital Signs/Intake and Output Vital Signs (last 24 hours): Temp Pulse Resp BP Pulse Ox 98.4 F 61 20 134/76 97 05/17/17 07:32 05/17/17 07:32 05/17/17 07:32 05/17/17 07:32 05/17/17 07:32 - Medications Medications: Current Medications Aspirin (Ecotrin) 81 mg PO DAILY [facility] Last Admin: 05/16/17 09:04 Dose: 81 mg Atorvastatin Calcium (Lipitor) 40 mg PO HS [facility] Last Admin: 05/16/17 22:20 Dose: 40 mg Enoxaparin Sodium (Lovenox) 40 mg SC DAILY [facility] PRN Reason: Protocol Last Admin: 05/16/17 09:02 Dose: 40 mg Lactated Ringer's (Lactated Ringer's) 1,000 mls @ 200 mls/hr IV .Q5H [facility] Last Admin: 05/17/17 06:05 Dose: 200 mls/hr Ketorolac Tromethamine (Toradol) 30 mg IVP Q6 PRN PRN Reason: Pain, Mild (1-3) Lisinopril (Zestril) 2.5 mg PO DAILY [facility] Last Admin: 05/16/17 11:34 Dose: 2.5 mg Metoprolol Succinate (Toprol Xl) 25 mg PO DAILY [facility] Last Admin: 05/16/17 11:34 Dose: 25 mg Morphine Sulfate (Morphine) 2 mg IVP Q4 PRN PRN Reason: Pain, moderate (4-7) Morphine Sulfate (Morphine) 4 mg IVP Q6 PRN PRN Reason: Pain, severe (8-10) Ondansetron HCl (Zofran Inj) 4 mg IVP Q6 PRN PRN Reason: Nausea/Vomiting Pantoprazole Sodium (Protonix Inj) 40 mg IVP DAILY [facility] Last Admin: 05/16/17 16:06 Dose: 40 mg Ticagrelor (Brilinta) 90 mg PO BID [facility] Last Admin: 05/16/17 16:06 Dose: 90 mg - Labs Labs: 05/17/17 05:40 05/17/17 05:40 PT 12.7 Seconds (9.8-13.1) 05/17/17 05:40 INR 1.1 (0.9-1.2) 05/17/17 05:40 APTT 32.3 Seconds (25.6-37.1) 05/17/17 05:40 - Constitutional Appears: Non-toxic - Head Exam Head Exam: NORMAL INSPECTION - Respiratory Exam Respiratory Exam: Clear to Ausculation Bilateral, NORMAL BREATHING PATTERN - Cardiovascular Exam Cardiovascular Exam: REGULAR RHYTHM, +S1, +S2 - GI/Abdominal Exam GI & Abdominal Exam: Hypoactive Bowel Sounds. absent: Distended, Guarding, Tenderness - Extremities Exam Extremities Exam: absent: Pedal Edema, Tenderness - Neurological Exam Neurological Exam: Alert (upon awakening but sleeping all day.), CN II-XII Intact, Oriented x3 - Psychiatric Exam Psychiatric exam: Normal Affect, Normal Mood - Skin Skin Exam: Dry, Intact Assessment and Plan - Assessment and Plan (Free Text) Assessment: 46 year old male w/ PMHx of multiple bouts of pancreatitis admitted due to acute pancreatitis. Clinically improved. Diet advanced today. If tolerating soft diet, will advance to regular, low fat, low residue. Plan: (1) Acute pancreatitis - multiple episodes in past. - serum alcohol level negative. - Lipase trending down, 511--> 306 - LFTs/Bili wnl - LR @ 200cc/hr continue - Morphine for pain - Zofran for Nausea and vomiting - Seen by GI, Dr. Simms, will discusss management with GI. -diet advanced - d/c on Creon. (2) h/o ME, 2 stents placed 12/2016 - Resume Brilinta, Metoprolol, Rovustatin, and ASA as prescribed when no longer NPO (3) DVT prophylaxis - Lovenox 40mg SC
[2017-05-17] MEDS: Metoprolol Succinate 25 mg XL Tab PO SCH (08:41)
[2017-05-17] MEDS: Enoxaparin 40 mg Syringe SC SCH (08:42)
--- NOTE | 2017-05-17 16:06 | CP.PCM.PN ---
Subjective - Date & Time of Evaluation Date of Evaluation: 05/17/17 Time of Evaluation: 16:00 - Subjective Subjective: Patient seen at bedside. Denies abdominal pain, nausea, vomiting. Tolerated full diet Objective - Vital Signs/Intake and Output Vital Signs (last 24 hours): Temp Pulse Resp BP Pulse Ox 98.4 F 61 20 134/76 97 05/17/17 07:32 05/17/17 08:41 05/17/17 07:32 05/17/17 08:41 05/17/17 07:32 - Medications Medications: Current Medications Aspirin (Ecotrin) 81 mg PO DAILY [facility] Last Admin: 05/17/17 08:40 Dose: 81 mg Atorvastatin Calcium (Lipitor) 40 mg PO HS [facility] Last Admin: 05/16/17 22:20 Dose: 40 mg Enoxaparin Sodium (Lovenox) 40 mg SC DAILY [facility] PRN Reason: Protocol Last Admin: 05/17/17 08:42 Dose: 40 mg Lactated Ringer's (Lactated Ringer's) 1,000 mls @ 200 mls/hr IV .Q5H [facility] Last Admin: 05/17/17 12:25 Dose: Not Given Ketorolac Tromethamine (Toradol) 30 mg IVP Q6 PRN PRN Reason: Pain, Mild (1-3) Lisinopril (Zestril) 2.5 mg PO DAILY [facility] Last Admin: 05/17/17 08:41 Dose: 2.5 mg Metoprolol Succinate (Toprol Xl) 25 mg PO DAILY [facility] Last Admin: 05/17/17 08:41 Dose: 25 mg Morphine Sulfate (Morphine) 2 mg IVP Q4 PRN PRN Reason: Pain, moderate (4-7) Morphine Sulfate (Morphine) 4 mg IVP Q6 PRN PRN Reason: Pain, severe (8-10) Ondansetron HCl (Zofran Inj) 4 mg IVP Q6 PRN PRN Reason: Nausea/Vomiting Pantoprazole Sodium (Protonix Inj) 40 mg IVP DAILY [facility] Last Admin: 05/17/17 08:42 Dose: 40 mg Ticagrelor (Brilinta) 90 mg PO BID [facility] Last Admin: 05/17/17 08:42 Dose: 90 mg - Labs Labs: 05/17/17 05:40 05/17/17 05:40 PT 12.7 Seconds (9.8-13.1) 05/17/17 05:40 INR 1.1 (0.9-1.2) 05/17/17 05:40 APTT 32.3 Seconds (25.6-37.1) 05/17/17 05:40 - Constitutional Appears: Well - Head Exam Head Exam: ATRAUMATIC, NORMAL INSPECTION, NORMOCEPHALIC - Eye Exam Eye Exam: EOMI, Normal appearance, PERRL Pupil Exam: NORMAL ACCOMODATION, PERRL - Respiratory Exam Respiratory Exam: Clear to Ausculation Bilateral, NORMAL BREATHING PATTERN - Cardiovascular Exam Cardiovascular Exam: REGULAR RHYTHM, RRR, +S1, +S2. absent: Murmur - GI/Abdominal Exam GI & Abdominal Exam: Soft, Hyperactive Bowel Sounds, Normal Bowel Sounds. absent: Tenderness - Neurological Exam Neurological Exam: Alert, Awake, CN II-XII Intact, Normal Gait, Oriented x3 - Psychiatric Exam Psychiatric exam: Normal Affect, Normal Mood Assessment and Plan - Assessment and Plan (Free Text) Assessment: 46 year old male with h/o etoh abuse, cad s/p stents x 2, and recurrent pancreatitis admitted with abdominal pain in setting of acute pancreatitis with PD duct dilatation. Pain resolved. Tolerating regular diet Plan: - Low fat diet as needed -pain control as needed -anti-emetics as needed -etoh abstinence -smoking cessation advised -consider pancreatic enzyme supplementation when he starts eating -recommend outpatient EUS in 4-6 weeks - Can be discharged to home
--- NOTE | 2017-05-17 16:32 | CP.PCM.DIS ---
Provider - Provider Date of Admission: 05/16/17 04:36 Attending physician: Cecile Raymundo MD Time Spent in preparation of Discharge (in minutes): 30 Diagnosis - Discharge Diagnosis (1) Acute pancreatitis Status: Acute Hospital Course - Lab Results Lab Results: Most Recent Lab Values WBC 11.3 K/uL (4.8-10.8) H 05/17/17 05:40 RBC 4.27 Mil/uL (4.40-5.90) L 05/17/17 05:40 Hgb 12.3 g/dL (12.0-18.0) 05/17/17 05:40 Hct 37.6 % (35.0-51.0) 05/17/17 05:40 MCV 88.2 fl (80.0-94.0) 05/17/17 05:40 MCH 28.9 pg (27.0-31.0) 05/17/17 05:40 MCHC 32.8 g/dL (33.0-37.0) L 05/17/17 05:40 RDW 14.4 % (11.5-14.5) 05/17/17 05:40 Plt Count 140 K/uL (130-400) 05/17/17 05:40 MPV 10.0 fl (7.2-11.7) 05/17/17 05:40 Neut % (Auto) 56.4 % (50.0-75.0) 05/17/17 05:40 Lymph % (Auto) 32.2 % (20.0-40.0) 05/17/17 05:40 [place] % (Auto) 9.6 % (0.0-10.0) 05/17/17 05:40 Eos % (Auto) 1.4 % (0.0-4.0) 05/17/17 05:40 Baso % (Auto) 0.4 % (0.0-2.0) 05/17/17 05:40 Neut # 6.4 K/uL (1.8-7.0) 05/17/17 05:40 Lymph # 3.6 K/uL (1.0-4.3) 05/17/17 05:40 [place] # 1.1 K/uL (0.0-0.8) H 05/17/17 05:40 Eos # 0.2 K/uL (0.0-0.7) 05/17/17 05:40 Baso # 0.0 K/uL (0.0-0.2) 05/17/17 05:40 PT 12.7 Seconds (9.8-13.1) 05/17/17 05:40 INR 1.1 (0.9-1.2) 05/17/17 05:40 APTT 32.3 Seconds (25.6-37.1) 05/17/17 05:40 Sodium 142 mmol/l (132-148) 05/17/17 05:40 Potassium 3.8 MMOL/L (3.6-5.0) 05/17/17 05:40 Chloride 106 mmol/L (98-107) 05/17/17 05:40 Carbon Dioxide 28 mmol/L (22-30) 05/17/17 05:40 Anion Gap 12 (10-20) 05/17/17 05:40 BUN 5 mg/dl (9-20) L 05/17/17 05:40 Creatinine 0.7 mg/dL (0.8-1.5) L 05/17/17 05:40 Est GFR ( Amer) > 60 05/17/17 05:40 Est GFR (Non-Af Amer) > 60 05/17/17 05:40 Random Glucose 91 mg/dL (75-110) 05/17/17 05:40 Calcium 8.5 mg/dL (8.4-10.2) 05/17/17 05:40 Total Bilirubin 0.6 mg/dl (0.2-1.3) 05/17/17 05:40 AST 25 U/L (17-59) 05/17/17 05:40 ALT 28 U/L (21-72) 05/17/17 05:40 Alkaline Phosphatase 72 U/L (38-126) 05/17/17 05:40 Troponin I < 0.0120 ng/mL (0.00-0.120) 05/16/17 02:35 Total Protein 6.4 G/DL (6.3-8.2) 05/17/17 05:40 Albumin 3.5 g/dL (3.5-5.0) D 05/17/17 05:40 Globulin 2.9 gm/dL (2.2-3.9) 05/17/17 05:40 Albumin/Globulin Ratio 1.2 (1.0-2.1) 05/17/17 05:40 Lipase 306 U/L (23-300) H 05/17/17 05:40 Urine Color Straw (YELLOW) 05/16/17 17:00 Urine Clarity Clear (Clear) 05/16/17 17:00 Urine pH 6.0 (5.0-8.0) 05/16/17 17:00 Ur Specific [place] 1.012 (1.003-1.030) 05/16/17 17:00 Urine Protein Negative mg/dL (NEGATIVE) 05/16/17 17:00 Urine Glucose (UA) Neg mg/dL (Normal) 05/16/17 17:00 Urine Ketones Negative mg/dL (NEGATIVE) 05/16/17 17:00 Urine Blood Negative (NEGATIVE) 05/16/17 17:00 Urine Nitrate Negative (NEGATIVE) 05/16/17 17:00 Urine Bilirubin Negative (NEGATIVE) 05/16/17 17:00 Urine Urobilinogen 0.2-1.0 mg/dL (0.2-1.0) 05/16/17 17:00 Ur Leukocyte Esterase Neg Long/uL (Negative) 05/16/17 17:00 Urine RBC (Auto) < 1 /hpf (0-3) 05/16/17 17:00 Urine Microscopic WBC < 1 /hpf (0-5) 05/16/17 17:00 Ur Squamous Epith Cells < 1 /hpf (0-5) 05/16/17 17:00 Alcohol, Quantitative < 10 mg/dl (0-10) 05/16/17 05:30 - Hospital Course Hospital Course: 46 year old male with PMH of recurrent pancreatitis, etoh abuse, smoker, CAD (s/ p 2 stents) admitted for acute pancreatitis. Patient was hydrated with LR, placed NPO and his pain was controlled. He is tolerating a soft diet, low in fat and low fiber. Mild abdominal pain that is chronic. Gastroenterology evaluated the patient, recommended Creon. Patient to follow up with GI in 4-6 weeks for EUS. States he has appointment this week. Medications: Aspirin (Ecotrin) 81 mg PO DAILY [facility] Atorvastatin Calcium (Lipitor) 40 mg PO HS [facility] Lisinopril (Zestril) 2.5 mg PO DAILY [facility] Metoprolol Succinate (Toprol Xl) 25 mg PO DAILY [facility] Pantoprazole Sodium (Protonix Inj) 40 mg IVP DAILY [facility] Ticagrelor (Brilinta) 90 mg PO BID [facility] Start Creon 29451 units PO TID. Discharge Plan - Discharge Medications Prescriptions: Lipase/Protease/Amylase [Creon Dr 36,000 Units Capsule] 1 each PO TID #90 capsule.dr - Follow Up Plan Condition: FAIR Disposition: HOME/ ROUTINE Instructions: Pancreatitis (DC) Additional Instructions: Patient will follow up with Dr. Simms in 4-6 weeks for upper endoscopy. ER precautions given. Referrals: Jeet Simms MD [Medical Doctor] -
[2017-05-17 16:34] VITALS: BP 127/79; PULSE 56; RESP 18; TEMP 98.9; O2SAT 98
== END 2017-05-17 17:35 | disposition home or self-care (01) | DRG 204 ==
LOC: H.ER 01:30 → H.ERHOLD 04:36 → H.MEDSURG1 06:15
PROVIDERS: ADMIT Family Medicine Geriatric Medicine; ATTEND Family Medicine Geriatric Medicine
DX: K85.90 Acute pancreatitis without necrosis or infection, unspecified (principal); F10.10 Alcohol abuse, uncomplicated; F17.210 Nicotine dependence, cigarettes, uncomplicated; I25.10 Atherosclerotic heart disease of native coronary artery without angina pectoris; E78.00 Pure hypercholesterolemia, unspecified; Z95.5 Presence of coronary angioplasty implant and graft; I25.2 Old myocardial infarction; Y90.0 Blood alcohol level of less than 20 mg/100 ml; K86.89 Other specified diseases of pancreas

== ENCOUNTER 2017-05-19 03:53 | Emergency (ER) | payer MEDICAID ==
[2017-05-19 03:53] VITALS: BMI 20.9
[2017-05-19 04:16] VITALS: BP 129/81; PULSE 68; RESP 18; TEMP 98.4; O2SAT 99
[2017-05-19] MEDS ORDERED: Sodium Chloride 0.9% 1,000 ML IV STA (04:19)
--- NOTE | 2017-05-19 04:23 | ED PDOC ---
HPI: Abdomen Time Seen by Provider: 05/19/17 04:00 Chief Complaint (Nursing): Abdominal Pain Chief Complaint (Provider): abdominal pain History Per: Patient History/Exam Limitations: no limitations Onset/Duration Of Symptoms: Days (1) Current Symptoms Are (Timing): Still Present Location Of Pain/Discomfort: Epigastric, LUQ Quality Of Discomfort: "Pain" Associated Symptoms: Vomiting (x2) Additional History Per: Patient Additional Complaint(s): 46 y/o male history of CAD, hyperlipidemia, pancreatitis presents for eval of worsening upper abdominal pain x 1 day. Patient states he was admitted for acute pancreatitis on 05/15, was discharged 05/17 and feeling better. Patient notes after going home pain started again, with associated 2 episodes of nonbilious vomiting. Patient also admits to eating [place] earlier today. Denies fever, chest pain, shortness of breath, palpitations, changes in bowel movements, dysuria, hematuria. Patient taking Creon as prescribed since discharge. States he is in the process of being scheduled for an endoscopy with GI. Past Medical History Reviewed: Historical Data, Nursing Documentation, Vital Signs Vital Signs: Last Vital Signs Temp 98.4 F 05/19/17 04:05 Pulse 68 05/19/17 04:05 Resp 18 05/19/17 04:05 BP 129/81 05/19/17 04:05 Pulse Ox 99 05/19/17 05:23 - Medical History PMH: CAD, Hypercholesterolemia, Pancreatitis (2013) Denies: HIV, Chronic Kidney Disease - Surgical History Surgical History: Coronary Stent (x2) - Family History Family History: States: Unknown Family Hx - Social History Alcohol: None (sober x 15 months) - Home Medications Home Medications: Ambulatory Orders Medication Instructions Recorded Aspirin [Ecotrin] 81 mg PO DAILY #30 tablet. 01/27/17 Lisinopril 2.5 mg PO DAILY #30 tablet 01/27/17 Rosuvastatin Calcium [Crestor] 20 mg PO HS #30 tab 01/27/17 Ticagrelor [Brilinta] 90 mg PO BID #60 tab 01/27/17 Metoprolol Succinate XL [Toprol XL] 25 mg PO DAILY 04/19/17 Lipase/Protease/Amylase [Creon 1 each PO TID #90 capsule. 05/17/17 36,000 Units Capsule] Ondansetron ODT [Zofran ODT] 4 mg PO Q8 PRN #10 odt 05/19/17 traMADol [Ultram] 50 mg PO Q8 PRN #12 tab 05/19/17 - Allergies Allergies/Adverse Reactions: Allergies Allergy/AdvReac Type Severity Reaction Status Date / Time No Known Allergies Allergy Verified 05/16/17 01:43 Review of Systems ROS Statement: Except As Marked, All Systems Reviewed And Found Negative Gastrointestinal: Positive for: Abdominal Pain Physical Exam - Reviewed Nursing Documentation Reviewed: Yes Vital Signs Reviewed: Yes - Physical Exam Appears: Positive for: Well, Non-toxic, No Acute Distress Head Exam: Positive for: ATRAUMATIC, NORMAL INSPECTION, NORMOCEPHALIC Skin: Positive for: Normal Color Eye Exam: Positive for: Normal appearance ENT: Positive for: Normal ENT Inspection Cardiovascular/Chest: Positive for: Regular Rate, Rhythm Respiratory: Positive for: Normal Breath Sounds Gastrointestinal/Abdominal: Positive for: Bowel Sounds, Soft, Tenderness ( epigastric, LUQ) Back: Positive for: Normal Inspection Extremity: Positive for: Normal ROM Neurologic/Psych: Positive for: Alert, Oriented - Laboratory Results Result Diagrams: 05/19/17 04:57 05/19/17 04:57 Urine dip results: Negative for: Leukocyte Esterase, Blood, Nitrate, Ketones - ECG ECG: Positive for: Viewed By Me (reviewed by ED attending) ECG Rhythm: Positive for: Sinus Bradycardia O2 Sat by Pulse Oximetry: 99 - Progress ED Course And Treament: labs, ekg, IV fluids, IV morphine On re-eval, patient states he is feeling better. Case discussed with ED attending Dr. Leung; agrees with to discharge and follow up GI outpatient as previously instructed. Patient educated on findings, discharged with rx tramadol, zofran. Advised follow up with GI as scheduled. Return to ED for worsening/concerning symptoms. Disposition - Clinical Impression Clinical Impression: Abdominal pain Counseled Patient/Family Regarding: Studies Performed, Diagnosis, Need For Followup, Rx Given - Disposition Referrals: Dian Giraldo MD [Primary Care Provider] - Disposition: Routine/Home Disposition Time: 06:00 Condition: IMPROVED Prescriptions: Ondansetron ODT [Zofran ODT] 4 mg PO Q8 PRN #10 odt PRN Reason: Nausea/Vomiting traMADol [Ultram] 50 mg PO Q8 PRN #12 tab PRN Reason: Pain, Severe (8-10) Instructions: Abdominal Pain (ED)
[2017-05-19 05:09] LABS: BASO # 0.1 K/uL (0.0-0.2); BASO % 0.7 % (0.0-2.0); EOS # 0.2 K/uL (0.0-0.7); EOS % 2.1 % (0.0-4.0); HEMATOCRIT 41.1 % (35.0-51.0); LYMPH # 3.4 K/uL (1.0-4.3); LYMPH % 31.7 % (20.0-40.0); MEAN CORPUSCULAR HEMOGLOBIN 29.2 pg (27.0-31.0); MEAN CORPUSCULAR HGB CONC 33.2 g/dL (33.0-37.0); MEAN PLATELET VOLUME 9.7 fl (7.2-11.7); MONO % 8.9 % (0.0-10.0); NEUT # 6.1 K/uL (1.8-7.0); NEUT % 56.6 % (50.0-75.0); RED CELL DISTRIBUTION WIDTH 14.4 % (11.5-14.5); WHITE BLOOD COUNT 10.8 K/uL (4.8-10.8)
[2017-05-19 05:45] LABS: ALB/GLOB RATIO 1.3 (1.0-2.1); ALKALINE PHOSPHATASE 89 U/L (38-126); ALT/SGPT 28 U/L (21-72); AST/SGOT 26 U/L (17-59); BILIRUBIN,TOTAL 0.5 mg/dl (0.2-1.3); BLOOD UREA NITROGEN 10 mg/dl (9-20); CALCIUM 9.3 mg/dL (8.4-10.2); CARBON DIOXIDE 28 mmol/L (22-30); CHLORIDE 103 mmol/L (98-107); GFR AFRICAN-AMERICAN > 60; GLUCOSE,RANDOM 141 mg/dL (75-110); LIPASE 239 U/L (23-300); SODIUM 143 mmol/l (132-148); TOTAL PROTEIN 8.3 G/DL (6.3-8.2)
[2017-05-19 05:58] LABS: RBC URINE 1 /hpf (0-3); URINE BACTERIA RARE (<OCC); URINE BILIRUBIN NEGATIVE (NEGATIVE); URINE BLOOD NEGATIVE (NEGATIVE); URINE COLOR YELLOW (YELLOW); URINE GLUCOSE (UA) NEG (Normal); URINE KETONE NEGATIVE (NEGATIVE); URINE LEUKOCYTE ESTERASE NEG Leu/uL (Negative); URINE PROTEIN NEGATIVE (NEGATIVE); URINE UROBILINOGEN 0.2-1.0 mg/dL (0.2-1.0); WBC URINE 1 /hpf (0-5)
--- NOTE | 2017-05-19 15:30 | CARD ---
APPROVED REPORT EKG Measurement Heart [id number] <Conclusion> Sinus bradycardia Minimal voltage criteria for LVH, may be normal variant Borderline ECG
== END 2017-05-19 05:55 | disposition home or self-care (01) ==
LOC: H.ER 03:53
DX: R10.13 Epigastric pain (principal); R11.10 Vomiting, unspecified; R00.1 Bradycardia, unspecified; K85.90 Acute pancreatitis without necrosis or infection, unspecified; E78.5 Hyperlipidemia, unspecified; I25.10 Atherosclerotic heart disease of native coronary artery without angina pectoris

== ENCOUNTER 2017-05-21 20:13 | Emergency (ER) | payer MEDICAID ==
[2017-05-21 20:13] VITALS: BMI 20.9
[2017-05-21 20:17] VITALS: BP 151/90; PULSE 63; RESP 20; TEMP 98.4; O2SAT 100
[2017-05-21] MEDS ORDERED: Sodium Chloride 0.9% 1,000 ML IV STA (21:30)
[2017-05-21 21:43] LABS: BASO # 0.1 K/uL (0.0-0.2); BASO % 1.1 % (0.0-2.0); EOS # 0.2 K/uL (0.0-0.7); EOS % 2.2 % (0.0-4.0); HEMATOCRIT 42.6 % (35.0-51.0); LYMPH # 3.1 K/uL (1.0-4.3); MEAN CORPUSCULAR HEMOGLOBIN 29.2 pg (27.0-31.0); MEAN CORPUSCULAR HGB CONC 33.2 g/dL (33.0-37.0); MEAN PLATELET VOLUME 9.5 fl (7.2-11.7); MONO # 0.8 K/uL (0.0-0.8); MONO % 7.9 % (0.0-10.0); NEUT % 58.8 % (50.0-75.0); RED CELL DISTRIBUTION WIDTH 14.6 % (11.5-14.5); WHITE BLOOD COUNT 10.3 K/uL (4.8-10.8)
[2017-05-21 22:01] LABS: ALB/GLOB RATIO 1.3 (1.0-2.1); ALKALINE PHOSPHATASE 91 U/L (38-126); ALT/SGPT 34 U/L (21-72); AST/SGOT 29 U/L (17-59); BILIRUBIN,TOTAL 0.5 mg/dl (0.2-1.3); BLOOD UREA NITROGEN 11 mg/dl (9-20); CALCIUM 9.3 mg/dL (8.4-10.2); CARBON DIOXIDE 27 mmol/L (22-30); CHLORIDE 102 mmol/L (98-107); GFR AFRICAN-AMERICAN > 60; GLUCOSE,RANDOM 102 mg/dL (75-110); LIPASE 305 U/L (23-300); POTASSIUM 4.5 MMOL/L (3.6-5.0); SODIUM 141 mmol/l (132-148); TOTAL PROTEIN 8.4 G/DL (6.3-8.2)
--- NOTE | 2017-05-21 22:08 | ED PDOC ---
HPI: Abdomen Time Seen by Provider: 05/21/17 20:45 Chief Complaint (Nursing): Abdominal Pain Chief Complaint (Provider): Abdominal Pain History Per: Patient History/Exam Limitations: no limitations Onset/Duration Of Symptoms: Days (4) Outside of [place] travel?: No Current Symptoms Are (Timing): Still Present Location Of Pain/Discomfort: Epigastric Quality Of Discomfort: "Pain" Associated Symptoms: denies: Vomiting, Diarrhea Additional Complaint(s): Sam Angulo, a 46 year old male, who has a past medical history of pancreatitis presents to the ED complaining of abdominal pain x4 days. The patient states that the pain is constant and is specific to the epigastric area.He states that he was admitted last week for pancreatitis and was discharged. He states that he was told that there is a possibility he could have other stomach issues apart from t he pancreatitis he was diagnosed with. The patient further reports that he was given a referral to a independent living specialist but his appointment is not until next week and he is here today because the pain is still there. Denies rectal bleeding, diarrhea, vomiting. PMD: [facility] Past Medical History Reviewed: Historical Data, Nursing Documentation, Vital Signs Vital Signs: Last Vital Signs Temp 98.4 F 05/21/17 20:15 Pulse 63 05/21/17 20:15 Resp 20 05/21/17 20:15 BP 151/90 H 05/21/17 20:15 Pulse Ox 100 05/22/17 02:05 - Medical History PMH: CAD, Hypercholesterolemia, Pancreatitis (2013) Denies: HIV, Chronic Kidney Disease - Surgical History Surgical History: Coronary Stent (x2) - Family History Family History: States: Unknown Family Hx - Home Medications Home Medications: Ambulatory Orders Medication Instructions Recorded Aspirin [Ecotrin] 81 mg PO DAILY #30 tablet. 01/27/17 Lisinopril 2.5 mg PO DAILY #30 tablet 01/27/17 Rosuvastatin Calcium [Crestor] 20 mg PO HS #30 tab 01/27/17 Ticagrelor [Brilinta] 90 mg PO BID #60 tab 01/27/17 Metoprolol Succinate XL [Toprol XL] 25 mg PO DAILY 04/19/17 Lipase/Protease/Amylase [Ashley Dietrich 1 each PO TID #90 capsule. 05/17/17 36,000 Units Capsule] Ondansetron ODT [Zofran ODT] 4 mg PO Q8 PRN #10 odt 05/19/17 traMADol [Ultram] 50 mg PO Q8 PRN #12 tab 05/22/17 - Allergies Allergies/Adverse Reactions: Allergies Allergy/AdvReac Type Severity Reaction Status Date / Time No Known Allergies Allergy Verified 05/21/17 20:17 Review of Systems ROS Statement: Except As Marked, All Systems Reviewed And Found Negative Gastrointestinal: Positive for: Abdominal Pain (Epigastric Pain), Other (Denies rectal bleeding.). Negative for: Vomiting, Diarrhea Physical Exam - Reviewed Nursing Documentation Reviewed: Yes Vital Signs Reviewed: Yes - Physical Exam Appears: Positive for: Non-toxic, No Acute Distress Head Exam: Positive for: ATRAUMATIC, NORMAL INSPECTION, NORMOCEPHALIC Skin: Positive for: Normal Color, Warm, Dry Eye Exam: Positive for: Normal appearance, EOMI, PERRL ENT: Positive for: Normal ENT Inspection Neck: Positive for: Normal, Painless ROM, Supple Cardiovascular/Chest: Positive for: Regular Rate, Rhythm, Chest Non Tender. Negative for: Tachycardia Respiratory: Positive for: Normal Breath Sounds. Negative for: Wheezing, Respiratory Distress Gastrointestinal/Abdominal: Positive for: Bowel Sounds, Soft, Tenderness (Mild epigastric tenderness.). Negative for: Guarding, Rebound Back: Positive for: Normal Inspection Extremity: Positive for: Normal ROM. Negative for: Tenderness, Deformity, Swelling Neurologic/Psych: Positive for: Alert, Oriented, Gait - Laboratory Results Result Diagrams: 05/21/17 21:35 05/21/17 21:35 - ECG O2 Sat by Pulse Oximetry: 100 (RA) Pulse Ox Interpretation: Normal Medical Decision Making Medical Decision Makin:45 Initial impression: 46 year old male presenting with abdominal pain Differentials: Recurrent Pancreatis, Gastritis, Peptic Ulcer Disease Initial Plan: * Comp Metabolic Panel * Lipase * CBC * NS 1000ml IV 1000mls/hr * Pepcid 20mg IVP * Zofran 4mg IVP * Reevaluation * * IMPRESSION: Acute pancreatitis. Increased peripancreatic inflammatory stranding and fluid compared to most recent prior study. Dilatation of the duct within the tail of the pancreas is noted, similar in appearance SAM ANGULO | Final Radiology Report CONFIDENTIALITY STATEMENT This report is intended only for use by the referring physician, and only in accordance with law. If you received this in error, call [phone]. Page 2 of 2 to previous examination. Subcentimeter area of hypoattenuation within the tail of the pancreas, unchanged from prior study, not clearly in relation with the duct, may represent small pseudocyst. Peripancreatic adenopathy. Retained fecal material in the colon. Please see additional details/findings as above. Thank you for allowing us to participate in the care of your patient 0200 Pt still co of abdominal pain. Morphine 4 mg IV ordered Scribe Attestation Documented by Farida Etienne acting as a scribe for Cecille Burgos MD. Provider Attestation All medical record entries made by the Scribe were at my direction and personally dictated by me. I have reviewed the chart and agree that the record accurately reflects my personal performance of the history, physical exam, medical decision making, and the department course for this patient. I have also personally directed, reviewed, and agree with the discharge instructions and disposition. Disposition - Clinical Impression Clinical Impression: Pancreatitis, chronic - Patient ED Disposition Is Patient to be Admitted: No Doctor Will See Patient In The: Office Counseled Patient/Family Regarding: Studies Performed, Diagnosis, Need For Followup - Disposition Referrals: Jeet Simms MD [Medical Doctor] - Disposition: Routine/Home Disposition Time: 03:00 Condition: GOOD Additional Instructions: Follow up with your PCP in 2-3 days. Follow up with Dr Simms next week. Prescriptions: traMADol [Ultram] 50 mg PO Q8 PRN #12 tab PRN Reason: Pain, Severe (8-10) Instructions: Pancreatitis (ED)
--- NOTE | 2017-05-22 01:18 | CT ---
EXAM: CT Abdomen and Pelvis With Intravenous Contrast CLINICAL HISTORY: 46 years old, male; Pain; Abdominal pain; Generalized TECHNIQUE: Axial computed tomography images of the abdomen and pelvis with intravenous contrast. This CT exam was performed using one or more of the following dose reduction techniques: automated exposure control, adjustment of the mA and/or kV according to patient size, and/or use of iterative reconstruction technique. Coronal and sagittal reformatted images were created and reviewed. CONTRAST: 95 mL of [id number] administered intravenously. COMPARISON: CT - ABD PELVIS IV CONTRAST ONLY 05/16/2017 3:54:40 AM FINDINGS: Scarring in the left lower lobe. Increased peripancreatic inflammatory stranding and fluid compared to most recent prior study. Dilatation of the duct within the tail of the pancreas is noted, similar in appearance to previous examination. Subcentimeter area of hypoattenuation within the tail of the pancreas, unchanged from prior study, not clearly in relation with the duct. Peripancreatic adenopathy. The liver, spleen and adrenal glands demonstrate no acute abnormalities. The kidneys are symmetric with no evidence of hydronephrosis. The aorta is unremarkable. The small and large bowel as visualized demonstrate no evidence of obstruction or clear focus of inflammation. Retained fecal material in the colon. No ascites. No free air. Degenerative changes, most notable at L5-S1. IMPRESSION: Acute pancreatitis. Increased peripancreatic inflammatory stranding and fluid compared to most recent prior study. Dilatation of the duct within the tail of the pancreas is noted, similar in appearance to previous examination. Subcentimeter area of hypoattenuation within the tail of the pancreas, unchanged from prior study, not clearly in relation with the duct, may represent small pseudocyst. Peripancreatic adenopathy. Retained fecal material in the colon. Please see additional details/findings as above.
[2017-05-22] MEDS ORDERED: Sodium Chloride 0.9% 1,000 ML IV STA (02:03)
== END 2017-05-22 03:20 | disposition home or self-care (01) ==
LOC: H.ER 20:13
DX: K86.1 Other chronic pancreatitis (principal); Z95.5 Presence of coronary angioplasty implant and graft; I25.10 Atherosclerotic heart disease of native coronary artery without angina pectoris

== ENCOUNTER 2017-11-26 05:33 | Emergency (ER) | payer MEDICAID ==
[2017-11-26 05:33] VITALS: BMI 19.8
[2017-11-26 05:51] VITALS: BP 135/88; PULSE 69; RESP 13; TEMP 98.1; O2SAT 96
[2017-11-26] MEDS ORDERED: Clindamycin ORAL SUSP 75 MG/5 ML PO STA (05:55)
--- NOTE | 2017-11-26 06:06 | ED PDOC ---
HPI: General Adult Time Seen by Provider: 11/26/17 05:57 Chief Complaint (Nursing): Abnormal Skin Integrity Chief Complaint (Provider): Abnormal Skin Integrity History Per: Patient History/Exam Limitations: no limitations Onset/Duration Of Symptoms: Days (x 4) Current Symptoms Are (Timing): Still Present Additional Complaint(s): Raul is a 47 year old male who presents to the emergency department complaining of localized itching and swelling for the past 4 days. Patient noticed itching and swelling on the back of the left side of his neck skin. Patient states he went to get a haircut on November 06 and reports kovacs used straight blade. Denies fevers, chills, or any other symptoms. PMD: [facility] Past Medical History Reviewed: Historical Data, Nursing Documentation, Vital Signs Vital Signs: Last Vital Signs Temp 98.1 F 11/26/17 05:49 Pulse 69 11/26/17 05:49 Resp 13 11/26/17 05:49 BP 135/88 11/26/17 05:49 Pulse Ox 96 11/26/17 06:13 - Medical History PMH: CAD, Hypercholesterolemia, Pancreatitis (2013) Denies: HIV, Chronic Kidney Disease - Surgical History Surgical History: Coronary Stent (x2) - Family History Family History: States: Unknown Family Hx - Immunization History Hx Influenza Vaccination: No - Home Medications Home Medications: Ambulatory Orders Medication Instructions Recorded Aspirin [Ecotrin] 81 mg PO DAILY #30 tablet. 01/27/17 Lisinopril 2.5 mg PO DAILY #30 tablet 01/27/17 Rosuvastatin Calcium [Crestor] 20 mg PO HS #30 tab 01/27/17 Ticagrelor [Brilinta] 90 mg PO BID #60 tab 01/27/17 Lipase/Protease/Amylase [Creon Dr 1 each PO TID #90 capsule. 05/17/17 36,000 Units Capsule] Ondansetron ODT [Zofran ODT] 4 mg PO Q8 PRN #10 odt 05/19/17 traMADol [Ultram] 50 mg PO Q8 PRN #15 tab 06/26/17 Clindamycin [Cleocin] 300 mg PO TID 7 Days cap 11/26/17 DiphenhydrAMINE [Benadryl] 25 mg PO Q8 PRN #20 cap 11/26/17 Mupirocin 2% Ointment [Bactroban 22 applic EXT BID #1 tube 11/26/17 Ointment] - Allergies Allergies/Adverse Reactions: Allergies Allergy/AdvReac Type Severity Reaction Status Date / Time No Known Allergies Allergy Verified 11/26/17 05:51 Review of Systems Skin: Positive for: Other (localized itching and swelling) Physical Exam - Reviewed Nursing Documentation Reviewed: Yes Vital Signs Reviewed: Yes - Physical Exam Neck: Negative for: Normal ((+): Follculiatis of the paracervical region of the left side posterior of neck) - ECG O2 Sat by Pulse Oximetry: 96 (RA) Pulse Ox Interpretation: Normal Medical Decision Making Medical Decision Making: Time: 05:55 Impression: Infectious Folliculitis Plan: - Benadryl 25 mg PO - Cleocin 300 mg PO STAT Sta Upon provider evaluation patient is medically stable, and requires no further treatment in the ED at this time. Patient will be discharged with Rx for Cleocin , Benadryl and Bactroban Ointment. Counseling was provided and all questions were answered regarding diagnosis and need for follow up with PCP There is agreement to discharge plan. Return if symptoms persist or worsen. Scribe Attestation: Documented by Valdez Nolen, acting as a scribe for Chi Chaney MD Provider Scribe Attestation: All medical record entries made by the Scribe were at my direction and personally dictated by me. I have reviewed the chart and agree that the record accurately reflects my personal performance of the history, physical exam, medical decision making, and the department course for this patient. I have also personally directed, reviewed, and agree with the discharge instructions and disposition. Disposition - Clinical Impression Clinical Impression: Folliculitis - Patient ED Disposition Is Patient to be Admitted: No - Disposition Referrals: [facility] Le[facility] MD [Resident] - Disposition: Routine/Home Disposition Time: 05:56 Condition: STABLE Prescriptions: Clindamycin [Cleocin] 300 mg PO TID 7 Days cap DiphenhydrAMINE [Benadryl] 25 mg PO Q8 PRN #20 cap PRN Reason: Itching / Pruritus Mupirocin 2% Ointment [Bactroban Ointment] 22 applic EXT BID #1 tube Instructions: Folliculitis (ED) Forms: [employer] (Welsh)
== END 2017-11-26 06:13 | disposition home or self-care (01) ==
LOC: H.ER 05:33
DX: L73.9 Follicular disorder, unspecified (principal); E78.00 Pure hypercholesterolemia, unspecified; I25.10 Atherosclerotic heart disease of native coronary artery without angina pectoris; K85.90 Acute pancreatitis without necrosis or infection, unspecified; Z79.82 Long term (current) use of aspirin; Z95.5 Presence of coronary angioplasty implant and graft

== ENCOUNTER 2017-12-26 14:05 | Observation (INO) | payer MEDICAID ==
[2017-12-26 14:05] VITALS: BMI 19.8
[2017-12-26] MEDS ORDERED: Sodium Chloride 0.9% 500 ML IV STA (14:45)
--- NOTE | 2017-12-26 14:52 | ED PDOC ---
HPI: Chest Pain Time Seen by Provider: 12/26/17 14:21 Chief Complaint (Nursing): Chest Pain Chief Complaint (Provider): chest pain History Per: Patient History/Exam Limitations: no limitations Onset/Duration Of Symptoms: Days (yesterday evening) Current Symptoms Are (Timing): Better Additional Complaint(s): Chest pain left side. No dyspnea. No weakness. No neck pain, fever, cough, headaches. No leg pain. Had IN and 2 stents last year. [facility] pcp. Took his meds and ASA today. Past Medical History Reviewed: Nursing Documentation, Vital Signs Vital Signs: Last Vital Signs Temp 98.3 F 12/26/17 14:13 Pulse 56 L 12/26/17 15:14 Resp 16 12/26/17 14:13 BP 132/84 12/26/17 14:13 Pulse Ox 100 12/26/17 14:52 - Medical History PMH: CAD, Hypercholesterolemia, Pancreatitis (2013) Denies: HIV, Chronic Kidney Disease - Surgical History Surgical History: Coronary Stent (x2) - Family History Family History: States: Unknown Family Hx - Social History Current smoker - smoking cessation education provided: No Alcohol: None Drugs: Denies - Immunization History Hx Influenza Vaccination: No - Home Medications Home Medications: Ambulatory Orders Medication Instructions Recorded Aspirin [Ecotrin] 81 mg PO DAILY #30 tablet. 01/27/17 Lisinopril 2.5 mg PO DAILY #30 tablet 01/27/17 Rosuvastatin Calcium [Crestor] 20 mg PO HS #30 tab 01/27/17 Ticagrelor [Brilinta] 90 mg PO BID #60 tab 01/27/17 Lipase/Protease/Amylase [Ashley Dietrich 1 each PO TID #90 capsule. 05/17/17 36,000 Units Capsule] Ondansetron ODT [Zofran ODT] 4 mg PO Q8 PRN #10 odt 05/19/17 traMADol [Ultram] 50 mg PO Q8 PRN #15 tab 06/26/17 Clindamycin [Cleocin] 300 mg PO TID 7 Days cap 11/26/17 DiphenhydrAMINE [Benadryl] 25 mg PO Q8 PRN #20 cap 11/26/17 Mupirocin 2% Ointment [Bactroban 22 applic EXT BID #1 tube 12/29/17 Ointment] - Allergies Allergies/Adverse Reactions: Allergies Allergy/AdvReac Type Severity Reaction Status Date / Time No Known Allergies Allergy Verified 12/26/17 15:18 TEVIN Risk Score for UA/NSTEMI - TEVIN Risk Score Age > 64: NO 3 or more CAD Risk Factors: YES Aspirin use in past 7 days: YES Severe Angina: NO EKG ST changes greater than 0.5mm: NO Positive Cardiac Marker: NO TEVIN Score: 2 Risk %: 8% Review of Systems ROS Statement: Except As Marked, All Systems Reviewed And Found Negative Cardiovascular: Positive for: Chest Pain Physical Exam - Reviewed Nursing Documentation Reviewed: Yes Vital Signs Reviewed: Yes - Physical Exam Appears: Positive for: Non-toxic, No Acute Distress Head Exam: Positive for: ATRAUMATIC, NORMAL INSPECTION, NORMOCEPHALIC Skin: Positive for: Normal Color, Warm, DRY Eye Exam: Positive for: EOMI, Normal appearance, PERRL ENT: Positive for: Normal ENT Inspection Neck: Positive for: Normal, Painless ROM Cardiovascular/Chest: Positive for: Regular Rate, Rhythm, Chest Non Tender. Negative for: Edema Respiratory: Positive for: CNT, Normal Breath Sounds Gastrointestinal/Abdominal: Positive for: Normal Exam, Bowel Sounds, Soft. Negative for: Tenderness Back: Positive for: Normal Inspection. Negative for: L CVA Tenderness, R CVA Tenderness Extremity: Positive for: Normal ROM. Negative for: Tenderness, Pedal Edema Neurologic/Psych: Positive for: Alert, Oriented - Laboratory Results Result Diagrams: 12/26/17 15:00 12/26/17 15:00 Interpretation Of Abn Labs: no acute - ECG ECG: Positive for: Interpreted By Me, Viewed By Me ECG Rhythm: Positive for: Normal QRS, Normal ST Segment, Sinus Rhythm O2 Sat by Pulse Oximetry: 100 Pulse Ox Interpretation: Normal - Radiology X-Ray: Read By Radiologist X-Ray Interpretation: No Acute Disease - Progress ED Course And Treament: 1625: Stable. AAOx3. Pain free. Will admit considering risk factors and ACS hx. [facility] the [facility] resident who will admit. Disposition - Clinical Impression Clinical Impression: Chest pain - Patient ED Disposition Is Patient to be Admitted: Yes Counseled Patient/Family Regarding: Studies Performed, Diagnosis - Disposition Disposition Time: 16:26 Condition: FAIR - Pt Status Changed To: Hospital Disposition Of: Observation
--- NOTE | 2017-12-26 15:23 | RAD ---
HISTORY: pain COMPARISON: 04/19/2017 FINDINGS: LUNGS: Lung hurtado are hyperinflated ; rule out emphysema and or COPD. . There appears to be some linear scarring left lateral lung base. No acute consolidation PLEURA: No significant pleural effusion identified, no pneumothorax apparent. CARDIOVASCULAR: Normal. OSSEOUS STRUCTURES: No significant abnormalities. VISUALIZED UPPER ABDOMEN: Normal. OTHER FINDINGS: None. IMPRESSION: Lung hurtado are hyperinflated ; rule out emphysema and or COPD. . There appears to be some linear scarring left lateral lung base. No acute consolidation
[2017-12-26 15:31] LABS: BASO % 0.5 % (0.0-2.0); EOS # 0.1 K/uL (0.0-0.7); EOS % 1.6 % (0.0-4.0); HEMOGLOBIN 14.3 g/dL (12.0-18.0); LYMPH % 39.4 % (20.0-40.0); MEAN CELL VOLUME 87.9 fl (80.0-94.0); MEAN CORPUSCULAR HEMOGLOBIN 28.9 pg (27.0-31.0); MEAN CORPUSCULAR HGB CONC 32.9 g/dL (33.0-37.0); MEAN PLATELET VOLUME 9.8 fl (7.2-11.7); MONO # 0.7 K/uL (0.0-0.8); MONO % 8.4 % (0.0-10.0); NEUT # 3.9 K/uL (1.8-7.0); NEUT % 50.1 % (50.0-75.0); NRBC % 0.2 % (0.0-0.0); RBC 4.96 Mil/uL (4.40-5.90); RED CELL DISTRIBUTION WIDTH 14.2 % (11.5-14.5); WHITE BLOOD COUNT 7.7 K/uL (4.8-10.8)
[2017-12-26 15:38] LABS: ALB/GLOB RATIO 1.2 (1.0-2.1); ALBUMIN 4.2 g/dL (3.5-5.0); ALT/SGPT 27 U/L (21-72); AST/SGOT 26 U/L (17-59); BLOOD UREA NITROGEN 13 mg/dl (9-20); GFR AFRICAN-AMERICAN > 60; GFR NON-AFRICAN AMERICAN > 60
[2017-12-26 15:42] LABS: INR 1.1 (0.9-1.2); PARTIAL THROMBOPLASTIN TIME 31.9 Seconds (25.6-37.1); PROTHROMBIN TIME 11.7 Seconds (9.8-13.1)
--- NOTE | 2017-12-26 17:58 | CP.PCM.HP ---
History of Present Illness - History of Present Illness History of Present Illness: 47 year old male with medical history of CAD, s/p inferior posterior STEMI on 2017 (with 2 stents placed in 01/2017), Pancreatitis, EtOH abuse, and tabacco abuse presents to ED c/o left lower chest pain since yesterday afternoon. Patient describes the chest pain like pressure sensation, constant, intensity steady on 10, but at times the pain is sharp and intensity 6/10, no radiating , nothing makes the pain worse, nothing makes pain better, unchanged with positional changes or respiration, took tramadol 50 mg this morning, and it did not help ti improve the pain, however after Dilaudid dose in ED pain is now 2-3/ 10, but feels like is coming back to prior intensity. Patient reports a wet cough for about 2 years. His cough is unchanged from its baseline, and denies sputum production. Denies fevers and chills. Reports nausea without vomiting and " difficult to breath" when the chest pain is sharp. Had one large watery nonbloody stool last night, denies any episodes today. States this morning he felt lightheaded 2-3 times when he woke up this morning and got out of bed. Denies any other episodes of feeling lightheaded. Full CODE PMD: [facility], last visit on 07/07/16, seen by Dr. Garcia Cardio: Dr Carpio at [facility] PMHx: Pancreatitis, CAD (with 2 drug-eluting stents placed in 01/2017 at [facility] as per records), EtOH abuse, tobacco abuse ( as per records) Meds: Lisinopril 2.5mg PO daily, ASA 81mg PO daily, Brilinta 90mg PO BID, Creon 35533w TID, Zofran 4mg PO prn nausea, Rosuvastatin 20mg PO HS Allergies: NKDA Surgical hx: Cath with 2 drug-eluting stents placed in 01/2017 at [facility] Social hx: Former EtOH Abuser. Current smoker of half of pack daily. Denies recreational drugs. ED course: pulse:58, BP:132/84, rr:16, 100 % O2 sat in room air, afebrile labs: CBC, coag panel, CMP, troponin I x 1 EKG CXR treatment:dilaudid 0.5 mg once IV, NS 500 ml at 100 ml/hr Present on Admission - Present on Admission Any Indicators Present on Admission: No History of DVT/PE: No History of Uncontrolled Diabetes: No Urinary Catheter: No Decubitus Ulcer Present: No Review of Systems - Review of Systems All systems: reviewed and no additional remarkable complaints except (as per HPI ) Past Patient History - Past Medical History & Family History Past Medical History?: Yes - Past Social History Alcohol: None Drugs: Denies - CARDIAC Hx Hypercholesterolemia: Yes - PULMONARY Hx Respiratory Disorders: No - NEUROLOGICAL Hx Neurological Disorder: No - HEENT Hx HEENT Problems: No - RENAL Hx Chronic Kidney Disease: No - ENDOCRINE/METABOLIC Hx Endocrine Disorders: No - HEMATOLOGICAL/ONCOLOGICAL Hx Human Immunodeficiency Virus (HIV): No - INTEGUMENTARY Hx Dermatological Problems: No - MUSCULOSKELETAL/RHEUMATOLOGICAL Hx Falls: No - GASTROINTESTINAL Hx Pancreatitis: Yes (2014) - GENITOURINARY/GYNECOLOGICAL Hx Genitourinary Disorders: No - PSYCHIATRIC Hx Psychophysiologic Disorder: No Hx Substance Use: No - SURGICAL HISTORY Hx Coronary Stent: Yes (x2) - ANESTHESIA Hx Anesthesia: Yes Hx Anesthesia Reactions: No Meds Allergies/Adverse Reactions: Allergies Allergy/AdvReac Type Severity Reaction Status Date / Time No Known Allergies Allergy Verified 12/26/17 15:18 Physical Exam - Constitutional Appears: Non-toxic, No Acute Distress - Eye Exam Eye Exam: Normal appearance - ENT Exam ENT Exam: Mucous Membranes Moist - Respiratory Exam Respiratory Exam: Clear to Auscultation Bilateral, NORMAL BREATHING PATTERN. absent: Chest Wall Tenderness, Rales, Rhonchi, Wheezes, Respiratory Distress - Cardiovascular Exam Cardiovascular Exam: Bradycardia, REGULAR RHYTHM, +S1, +S2 - GI/Abdominal Exam GI & Abdominal Exam: Normal Bowel Sounds, Soft. absent: Distended, Firm, Guarding, Rigid, Tenderness - Extremities Exam Extremities exam: Positive for: normal inspection. Negative for: calf tenderness, pedal edema - Neurological Exam Neurological exam: Alert, Oriented x3 - Skin Skin Exam: Dry, Intact, Normal Color Results - Vital Signs Recent Vital Signs: Last Vital Signs Temp 98.3 F 12/26/17 14:13 Pulse 56 L 12/26/17 15:14 Resp 16 12/26/17 14:13 BP 132/84 12/26/17 14:13 Pulse Ox 100 12/26/17 16:26 - Labs Result Diagrams: 12/26/17 15:00 12/26/17 15:00 Labs: Laboratory Results - last 24 hr 12/26/17 12/26/17 12/26/17 15:00 15:00 15:00 WBC 7.7 RBC 4.96 Hgb 14.3 Hct 43.6 MCV 87.9 MCH 28.9 MCHC 32.9 L RDW 14.2 Plt Count 138 MPV 9.8 Neut % (Auto) 50.1 Lymph % (Auto) 39.4 [place] % (Auto) 8.4 Eos % (Auto) 1.6 Baso % (Auto) 0.5 Neut # 3.9 Lymph # 3.0 [place] # 0.7 Eos # 0.1 Baso # 0.0 PT 11.7 INR 1.1 APTT 31.9 Sodium 140 Potassium 4.3 Chloride 101 Carbon Dioxide 28 Anion Gap 15 BUN 13 Creatinine 0.7 L Est GFR ( Amer) > 60 Est GFR (Non-Af Amer) > 60 Random Glucose 121 H Calcium 9.0 Total Bilirubin 0.5 AST 26 ALT 27 Alkaline Phosphatase 61 Troponin I < 0.0120 Total Protein 7.6 Albumin 4.2 Globulin 3.4 Albumin/Globulin Ratio 1.2 Assessment & Plan - Assessment and Plan (Free Text) Assessment: 47 year old male with medical history of CAD (with 2 stents placed in 12/2016) admitted with chest pain to r/o ACS. Plan: Chest pain -R/O ACS -Telemetry unit for continue cardiac monitoring -Troponin I x 1 normal -EKG in ED showed sinus bradycardia. NO evidence of acute ST-T wave changes when compared with prior EKG test. -CXR reported as lung hurtado hyperiflated, r/o emphysema/COPD. NO acute consolidation -f/u Troponin I x 2 Q8 -f/u EKG in AM CAD s/p Cardiac cath with stent placement -c/w aspirin and Ticagrelor -no taking beta-rey, HR: <60 -c/w lisinopril -c/w statin H/o Chronic pancreatitis -c/w Creon DVT prophylaxis Lovenox 40 mg SC - Date & Time Date: 12/26/17 Time: 16:40
[2017-12-26 22:07] LABS: AMYLASE 63 U/L (30-110); LIPASE 360 U/L (23-300)
[2017-12-26] MEDS ORDERED: Sodium Chloride 0.9% 1,000 ML IV SCH (23:00)
[2017-12-26] MEDS: Sodium Chloride 0.9% 1,000 ML IV SCH (23:03)
[2017-12-27] MEDS: Sodium Chloride 0.9% 1,000 ML IV SCH (05:44)
--- NOTE | 2017-12-27 07:53 | CARD ---
APPROVED REPORT EKG Measurement Heart [id number] <Conclusion> Sinus bradycardia Early repolarization Otherwise normal ECG
[2017-12-27] MEDS ORDERED: AMYLASE PO SCH (09:00)
[2017-12-27] MEDS ORDERED: Enoxaparin 40 mg Syringe SC SCH (09:00)
[2017-12-27] MEDS ORDERED: PROTEASE PO SCH (09:00)
[2017-12-27] MEDS ORDERED: LIPASE PO SCH (09:00)
--- NOTE | 2017-12-27 09:17 | CP.PCM.DIS ---
Provider - Provider Date of Admission: 12/26/17 16:32 Attending physician: Cecile Raymundo MD Primary care physician: MIThea Garcia Time Spent in preparation of Discharge (in minutes): 30 Hospital Course - Lab Results Lab Results: Most Recent Lab Values WBC 7.7 K/uL (4.8-10.8) 12/26/17 15:00 RBC 4.96 Mil/uL (4.40-5.90) 12/26/17 15:00 Hgb 14.3 g/dL (12.0-18.0) 12/26/17 15:00 Hct 43.6 % (35.0-51.0) 12/26/17 15:00 MCV 87.9 fl (80.0-94.0) 12/26/17 15:00 MCH 28.9 pg (27.0-31.0) 12/26/17 15:00 MCHC 32.9 g/dL (33.0-37.0) L 12/26/17 15:00 RDW 14.2 % (11.5-14.5) 12/26/17 15:00 Plt Count 138 K/uL (130-400) 12/26/17 15:00 MPV 9.8 fl (7.2-11.7) 12/26/17 15:00 Neut % (Auto) 50.1 % (50.0-75.0) 12/26/17 15:00 Lymph % (Auto) 39.4 % (20.0-40.0) 12/26/17 15:00 [place] % (Auto) 8.4 % (0.0-10.0) 12/26/17 15:00 Eos % (Auto) 1.6 % (0.0-4.0) 12/26/17 15:00 Baso % (Auto) 0.5 % (0.0-2.0) 12/26/17 15:00 Neut # 3.9 K/uL (1.8-7.0) 12/26/17 15:00 Lymph # 3.0 K/uL (1.0-4.3) 12/26/17 15:00 [place] # 0.7 K/uL (0.0-0.8) 12/26/17 15:00 Eos # 0.1 K/uL (0.0-0.7) 12/26/17 15:00 Baso # 0.0 K/uL (0.0-0.2) 12/26/17 15:00 PT 11.7 Seconds (9.8-13.1) 12/26/17 15:00 INR 1.1 (0.9-1.2) 12/26/17 15:00 APTT 31.9 Seconds (25.6-37.1) 12/26/17 15:00 Sodium 140 mmol/l (132-148) 12/26/17 15:00 Potassium 4.3 MMOL/L (3.6-5.0) 12/26/17 15:00 Chloride 101 mmol/L (98-107) 12/26/17 15:00 Carbon Dioxide 28 mmol/L (22-30) 12/26/17 15:00 Anion Gap 15 (10-20) 12/26/17 15:00 BUN 13 mg/dl (9-20) 12/26/17 15:00 Creatinine 0.7 mg/dl (0.8-1.5) L 12/26/17 15:00 Est GFR ( Amer) > 60 12/26/17 15:00 Est GFR (Non-Af Amer) > 60 12/26/17 15:00 Random Glucose 121 mg/dL (75-110) H 12/26/17 15:00 Calcium 9.0 mg/dL (8.4-10.2) 12/26/17 15:00 Total Bilirubin 0.5 mg/dl (0.2-1.3) 12/26/17 15:00 AST 26 U/L (17-59) 12/26/17 15:00 ALT 27 U/L (21-72) 12/26/17 15:00 Alkaline Phosphatase 61 U/L (38-126) 12/26/17 15:00 Troponin I < 0.0120 ng/mL (0.00-0.120) 12/27/17 04:30 Total Protein 7.6 G/DL (6.3-8.2) 12/26/17 15:00 Albumin 4.2 g/dL (3.5-5.0) 12/26/17 15:00 Globulin 3.4 gm/dL (2.2-3.9) 12/26/17 15:00 Albumin/Globulin Ratio 1.2 (1.0-2.1) 12/26/17 15:00 Amylase 63 U/L (30-110) 12/26/17 21:43 Lipase 360 U/L (23-300) H 12/26/17 21:43 - Hospital Course Hospital Course: 47 year old male with medical history of CAD, s/p inferior posterior STEMI on 2016 (with 2 stents placed in 01/2017), Pancreatitis, EtOH abuse, and tobacco abuse admitted with chest pain to rule out ACS. EKG in ED showed sinus bradycardia with no evidence of acute ST-T wave changes when compared with prior EKG test; next day EKG found to be unremarkable. Troponin I x3 were negative. Symptoms correlated with flare of acute on chronic pancreatitis secondary to missed medication. Patient was managed with Famotidine 20mg PO QD. Continue home medications. Follow-up [facility] 01/03/[address] Hollie Garcia @ 9: 20AM. Discharge medications: Famotidine [Pepcid] 20 mg PO DAILY 30 Days #30 tab Discharge Exam - Head Exam Head Exam: ATRAUMATIC, NORMAL INSPECTION, NORMOCEPHALIC - Eye Exam Eye Exam: EOMI, Normal appearance Pupil Exam: NORMAL ACCOMODATION, PERRL - ENT Exam ENT Exam: Mucous Membranes Moist - Neck Exam Neck exam: Full Rom - Respiratory Exam Respiratory Exam: Clear to PA & Lateral, NORMAL BREATHING PATTERN, UNREMARKABLE. absent: Rales, Rhonchi, Wheezes, Respiratory Distress - Cardiovascular Exam Cardiovascular Exam: Bradycardia, REGULAR RHYTHM, +S1, +S2 - GI/Abdominal Exam GI & Abdominal Exam: Normal Bowel Sounds, Soft, Unremarkable. absent: Tenderness - Extremities Exam Extremities exam: full ROM, normal inspection - Neurological Exam Neurological exam: Alert, Oriented x3 - Psychiatric Exam Psychiatric exam: Normal Affect, Normal Mood - Skin Skin Exam: Dry, Intact, Normal Color, Warm Discharge Plan - Discharge Medications Prescriptions: Famotidine [Pepcid] 20 mg PO DAILY 30 Days #30 tab - Follow Up Plan Condition: FAIR Disposition: HOME/ ROUTINE Patient education suggested?: Yes Instructions: Pancreatitis (DC) Additional Instructions: Follow-up [facility] 01/03/[address] Hollie Garcia @ 9:20AM Referrals: Hollie Garcia MD [Resident] - 1 Week (Follow-up 01/03/[address] Hollie Garcia @ 9: 20AM)
[2017-12-27 12:07] VITALS: O2SAT 97
--- NOTE | 2017-12-27 12:49 | CARD ---
APPROVED REPORT EKG Measurement Heart [id number] <Conclusion> Sinus bradycardia RSR' or QR pattern in V1 suggests right ventricular conduction delay Borderline ECG
[2017-12-27 15:57] VITALS: BP 139/83; PULSE 58; RESP 20; TEMP 98
== END 2017-12-27 16:00 | disposition home or self-care (01) ==
LOC: H.ER 14:05 → H.EROBSV 16:32 → H.ERHOLD 16:32 → H.TEL 19:07
PROVIDERS: ADMIT Family Medicine Geriatric Medicine; ATTEND Family Medicine Geriatric Medicine
DX: K85.90 Acute pancreatitis without necrosis or infection, unspecified (principal); I25.10 Atherosclerotic heart disease of native coronary artery without angina pectoris; I25.2 Old myocardial infarction; K86.1 Other chronic pancreatitis; Z95.5 Presence of coronary angioplasty implant and graft; R00.1 Bradycardia, unspecified; E78.00 Pure hypercholesterolemia, unspecified; F10.10 Alcohol abuse, uncomplicated; F17.210 Nicotine dependence, cigarettes, uncomplicated
CPT/HCPCS: 36415; 71045; 80053; 82150; 83690; 84484; 85025; 85610; 85730; 93005; 99285; G0378; J1170; J1650; J7040

== ENCOUNTER 2018-03-06 23:05 | Emergency (ER) | payer MEDICAID ==
[2018-03-06 23:08] VITALS: BMI 19.9
[2018-03-06 23:10] VITALS: BP 154/95; PULSE 76; RESP 16; TEMP 97.6; O2SAT 100
[2018-03-06] MEDS ORDERED: Sodium Chloride 0.9% 1,000 ML IV SCH (23:45)
[2018-03-06] MEDS ORDERED: Morphine 4 MG/ML VIAL IVP ONE (23:53)
[2018-03-07] MEDS ORDERED: Morphine 4 MG/ML VIAL ONE
--- NOTE | 2018-03-07 00:10 | ED PDOC ---
HPI: Abdomen Chief Complaint (Provider): abdominal/back pain History Per: Patient History/Exam Limitations: no limitations Onset/Duration Of Symptoms: Days Current Symptoms Are (Timing): Still Present Context: Food Severity: Moderate Pain Scale Rating Of: 6 Location Of Pain/Discomfort: Epigastric Quality Of Discomfort: Sharp, Aching Associated Symptoms: Nausea, Back Pain, Constipation. denies: Fever, Vomiting, Diarrhea, Chest Pain Exacerbating Factors: Supine, Food Alleviating Factors: Leaning Forward Last Bowel Movement: Yesterday <Stefany Lester - Last Filed: 03/07/18 02:34> <Deric Leung - Last Filed: 03/08/18 03:24> Time Seen by Provider: 03/06/18 23:20 Chief Complaint (Nursing): Abdominal Pain Additional Complaint(s): 47 yo M with PMH CAD (s/p STEMI in 2016 and 2 drug eluding stent placement in 2016), HTN, chronic pancreatitis, history of alcohol abuse presented to ED on 03/06/18 with 2-3 days of epigastric pain that he states is a constant aching 5/10 but is sometimes exacerbated as a sharp pain to 7/10 for a few seconds at a time. States that food makes the pain worse and he has to stop eating when he starts a meal, due to pain. Laying supine also makes the pain worse. Denies chest pain, radiation to arms/jaw, shortness of breath, vomiting. States he has BM every other day, last BM was yesterday; describes symptoms of mild constipation. Pt also complains of left sided lower back pain, that he states is a steady aching 5/10. Does not feel as if his pain radiates from his abdomen through to his back; states he feels they are two separate pains. PMD: DCC Past Med hx: CAD (s/p STEMI in 2016 and 2 drug eluding stent placement in 01/2017 ), HTN, chronic pancreatitis, history of alcohol abuse' Past Surg hx: 2 coronary stents placed 01/2017 Social hx: smokes 1/2 ppd; used to smoke 1-1.5 ppd prior to STEMI; former alcohol abuse, states he has not drank alcohol in 2 years; denies illicit drug use Fam hx: HTN, DM2, breast ca Medications: lisinopril, aspirin, brilinta (ticagrelor), creon, rosuvastatin, metoprolol, omeprazole Allergies: NKDA (Stefany Lester) Supervising Attending Note - Supervising Attending Note The Documented history was done by the: Physician Flask Handler The documented physical exam was done by the: Physician Flask Handler - Attestation: I have personally seen and examined this patient.: Yes I have fully participated in the care of the patient.: Yes I have reviewed all pertinent clinical information: Yes <Deric Leung - Last Filed: 03/08/18 03:24> Past Medical History - Medical History PMH: AMI-STEMI, CAD, HTN, Hypercholesterolemia, Pancreatitis (2013) Denies: HIV, Chronic Kidney Disease - Surgical History Surgical History: Coronary Stent (x2) - Family History Family History: States: Diabetes, Hypertension - Social History Alcohol: None (former alcohol abuse) Drugs: Denies - Immunization History Hx Influenza Vaccination: No <Stefany Lester - Last Filed: 03/07/18 02:34> <Deric Leung - Last Filed: 03/08/18 03:24> Vital Signs: Last Vital Signs Temp 97.6 F 03/06/18 23:08 Pulse 76 03/06/18 23:08 Resp 16 03/06/18 23:08 BP 154/95 H 03/06/18 23:08 Pulse Ox 100 03/07/18 02:34 - Home Medications Home Medications: Ambulatory Orders Medication Instructions Recorded Aspirin [Ecotrin] 81 mg PO DAILY #30 tablet. 01/27/17 Lisinopril 2.5 mg PO DAILY #30 tablet 01/27/17 Rosuvastatin Calcium [Crestor] 20 mg PO HS #30 tab 01/27/17 Ticagrelor [Brilinta] 90 mg PO BID #60 tab 01/27/17 Lipase/Protease/Amylase [Creon Dr 1 each PO TID #90 capsule. 05/17/17 36,000 Units Capsule] DiphenhydrAMINE [Benadryl] 25 mg PO Q8 PRN #20 cap 11/26/17 Famotidine [Pepcid] 20 mg PO DAILY 30 Days #30 tab 12/27/17 - Allergies Allergies/Adverse Reactions: Allergies Allergy/AdvReac Type Severity Reaction Status Date / Time No Known Allergies Allergy Verified 03/06/18 23:08 Review of Systems Constitutional: Negative for: Fever, Chills, Sweats Cardiovascular: Negative for: Chest Pain, Palpitations Respiratory: Negative for: Cough, Shortness of Breath Gastrointestinal: Positive for: Nausea, Abdominal Pain, Constipation. Negative for: Vomiting, Diarrhea, Melena, Hematochezia, Hematemesis Genitourinary Male: Negative for: Dysuria, Frequency, Hematuria Musculoskeletal: Positive for: Back Pain Neurological: Negative for: Confusion, Dizziness <Stefany Lester - Last Filed: 03/07/18 02:34> Physical Exam - Physical Exam Appears: Positive for: Uncomfortable Head Exam: Positive for: ATRAUMATIC, NORMAL INSPECTION Skin: Positive for: Normal Color, Warm, Dry Eye Exam: Positive for: EOMI, PERRL. Negative for: Conjunctival injection, Scleral icterus ENT: Negative for: Pharyngeal Erythema, Tonsillar Exudate Neck: Positive for: Painless ROM. Negative for: Supple Cardiovascular/Chest: Positive for: Regular Rate, Rhythm. Negative for: Chest Non Tender, Murmur Respiratory: Positive for: Normal Breath Sounds. Negative for: Wheezing, Plerual Rub Gastrointestinal/Abdominal: Positive for: Bowel Sounds, Soft, Tenderness ( diffuse, mostly in epigastric area and LLQ, some RLQ) Back: Positive for: Normal Inspection Extremity: Negative for: Tenderness, Pedal Edema, Deformity Neurologic/Psych: Positive for: Alert, Oriented <Stefany Lester - Last Filed: 03/07/18 02:34> - Laboratory Results Result Diagrams: 03/06/18 00:05 03/06/18 00:05 - ECG O2 Sat by Pulse Oximetry: 100 <Stefany Lester - Last Filed: 03/07/18 02:34> - Laboratory Results Result Diagrams: 03/06/18 00:05 03/06/18 00:05 <Deric Leung - Last Filed: 03/08/18 03:24> Medical Decision Making <Stefany Lester - Last Filed: 03/07/18 02:34> <Deric Leung - Last Filed: 03/08/18 03:24> Medical Decision Makin yo M with epigastric pain in the setting of known coronary artery disease; r/ o cardiac cause. - EKG - Troponin - Lipase - CBC - CMP - 1L NS @ 125 ml/hr - famotidine 40 mg IVP - morphine 4mg IVP - UDS - EtOH level Re-eval- Nonsecific changes on EKG, troponin neg. Lipase, lft, bmp, cmp unremarkable. Pt feels better; states pain has subsided. Pt encouraged to take PPI, stable for discharge; will be set up with appt w/ PMD. Discussed with Dr. Leung. (Stefany Lester) Disposition - Patient ED Disposition Is Patient to be Admitted: No - Disposition Disposition: Routine/Home Disposition Time: 02:12 <Stefany Lester - Last Filed: 03/07/18 02:34> <Deric Leung - Last Filed: 03/08/18 03:24> - Clinical Impression Clinical Impression: Gastritis - Disposition [facility] [place] Condition: STABLE Additional Instructions: Please continue taking your medications as prescribed; be sure that you are taking omeprazole as prescribed. You will be scheduled for an appointment with the [facility] at [address] [place] [address]; you should be be notified about this appointment within the next few days at your provided preferred phone number. If you are not notified, please call [phone] for an appointment. Instructions: Low Back Pain in Adults, Gastritis Forms: [employer] (Icelandic)
[2018-03-07 00:32] LABS: BASO % 0.4 % (0.0-2.0); EOS # 0.2 K/uL (0.0-0.7); EOS % 1.8 % (0.0-4.0); HEMOGLOBIN 14.5 g/dL (12.0-18.0); LYMPH # 3.9 K/uL (1.0-4.3); LYMPH % 42.6 % (20.0-40.0); MEAN CELL VOLUME 87.7 fl (80.0-94.0); MEAN CORPUSCULAR HEMOGLOBIN 29.6 pg (27.0-31.0); MEAN CORPUSCULAR HGB CONC 33.8 g/dL (33.0-37.0); MONO # 0.7 K/uL (0.0-0.8); MONO % 7.4 % (0.0-10.0); NEUT # 4.3 K/uL (1.8-7.0); NEUT % 47.8 % (50.0-75.0); RBC 4.88 Mil/uL (4.40-5.90); RED CELL DISTRIBUTION WIDTH 14.2 % (11.5-14.5); WHITE BLOOD COUNT 9.1 K/uL (4.8-10.8)
[2018-03-07 00:38] LABS: ALB/GLOB RATIO 1.1 (1.0-2.1); ALBUMIN 4.3 g/dL (3.5-5.0); ALT/SGPT 35 U/L (21-72); AST/SGOT 27 U/L (17-59); BLOOD UREA NITROGEN 11 mg/dl (9-20); CALCIUM 9.5 mg/dL (8.4-10.2); GFR AFRICAN-AMERICAN > 60; GFR NON-AFRICAN AMERICAN > 60; LIPASE 213 U/L (23-300)
--- NOTE | 2018-03-07 07:44 | CARD ---
APPROVED REPORT EKG Measurement Heart [id number] <Conclusion> Normal sinus rhythm Possible Left atrial enlargement RSR' or QR pattern in V1 suggests right ventricular conduction delay Left ventricular hypertrophy Abnormal ECG
== END 2018-03-07 02:35 | disposition home or self-care (01) ==
LOC: H.ER 23:05
DX: K29.70 Gastritis, unspecified, without bleeding (principal); F17.210 Nicotine dependence, cigarettes, uncomplicated; I10 Essential (primary) hypertension; I25.10 Atherosclerotic heart disease of native coronary artery without angina pectoris; I25.2 Old myocardial infarction; Z79.82 Long term (current) use of aspirin; Z95.5 Presence of coronary angioplasty implant and graft; E78.00 Pure hypercholesterolemia, unspecified
CPT/HCPCS: 80053; 80320; 83690; 84484; 85025; 93005; 96361; 96374; 96375; 99283; J2270; J7040